=== PATIENT | male | born 1940 | race Caucasian/White ===

== ENCOUNTER 2020-11-22 16:20 | Inpatient (IN) | payer MEDICARE, SELFPAY ==
[2020-11-22] VITALS (22 sets, daily range): BP systolic 148–194; BP diastolic 95–126; PULSE 70–105; RESP 16–34; TEMP 37.2; O2SAT 88–100; BMI 26.6
--- NOTE | 2020-11-22 16:49 | XRR_ITS ---
PROCEDURE INFORMATION: Exam: XR Chest, 1 View Exam date and time: 11/22/2020 4:52 PM Age: 80 years old Clinical indication: Shortness of breath; Additional info: Hypoxia TECHNIQUE: Imaging protocol: XR of the chest Views: 1 view. COMPARISON: CR Chest 2 views* [id number] 11/27/2015 12:13 PM FINDINGS: Lungs: Bilateral perihilar infiltrates, right worse than left. Pleural space: No pleural effusion. No pneumothorax. Heart/Mediastinum: Moderate cardiomegaly is noted. Bones/joints: Unremarkable. XR/XR chest 1V portable [id number] IMPRESSION: 1. Moderate cardiomegaly is noted. 2. Bilateral perihilar infiltrates, right worse than left. Consider bilateral pneumonia versus pulmonary edema. 3. Findings are new when compared to 11/27/2015.
--- NOTE | 2020-11-22 16:51 | ECG_ITS ---
[facility] Test Date: 2020-11-22 Pat Name: Keshav Johnson Department: Room: Gender: Male Data Mining Analyst: : 1940 Requested By: Hailey Cordova I Order Number: [id number] Catrina MD: Andrew Quispe M.D. Measurements Intervals [place] Rate: 93 P: [place]: QRS: 255 QRSD: 88 T: -76 QT: 351 QTc: 438 Interpretive Statements ATRIAL FIBRILLATION RIGHT AXIS DEVIATION [QRS AXIS > 100] LOW QRS VOLTAGE IN EXTREMITY LEADS [QRS DEFLECTION < 0.5 mV IN LIMB LEADS] SEPTAL MYOCARDIAL INFARCTION , OF INDETERMINATE AGE [40+ ms Q WAVE IN V1/V2] Compared to ECG 11/27/2015 12:58:01 Right-axis deviation now present Low QRS voltage now present Myocardial infarct finding now present Sinus tachycardia no longer present Electronically Signed On 11-22-2020 17:40:41 SALES PLANNING MANAGER by Andrew Quispe M.D. [email or web address].Estimote/store/NU/[id number] f
[2020-11-22 17:13] LABS: Basophils % 0.2 %; Hematocrit 54.5 % (42.0-52.0); Hemoglobin 17.3 g/dL (11.7-16.6); Lymphocytes # 1.3 10^3/uL (0.8-4.8); Lymphocytes % 5.3 %; Mean Corpuscular HGB Conc 31.7 g/dL (30.0-36.0); Mean Corpuscular Hemoglobin 31.1 pg (28.0-34.0); Mean Corpuscular Volume 97.8 fL (80-94); Mean Platelet Volume 10.7 fL (7.4-10.4); Monocytes # 1.8 10^3/uL (0.2-0.9); Monocytes % 7.3 %; Neutrophils # 21.32 10^3/uL (1.8-7.7); Neutrophils % 86.2 %; Nucleated Red Blood Cells # 0.1 /100WBC; Nucleated Red Blood Cells % 0.3 %; Platelet Count 208 10^3/cmm (130-400); Red Blood Count 5.57 10^6/uL (4.1-5.3); White Blood Count 24.7 10^3/uL (4.0-10.0)
[2020-11-22 17:21] LABS: Lactic Sepsis W/Reflex 3.8 mmol/L (0.5-2.2)
[2020-11-22 17:22] LABS: Troponin(5th) Baseline 58 ng/L (0-15)
--- NOTE | 2020-11-22 17:22 | PC.PHAR ---
pt unable to verify medications-medications entered are medications that were filled that shows on ext med history
[2020-11-22 17:31] LABS: Alanine Aminotransferase 147 U/L (0-41); Alkaline Phosphatase 157 IU/L (40-130); Anion Gap 22.2 (5-19); Aspartate Amino Transferase 158 U/L (0-40); Blood Urea Nitrogen 49 mg/dL (8-23); Calcium 10.2 mg/dL (8.5-10.5); Carbon Dioxide 21 mmol/L (22-29); Chloride 101 mmol/L (98-107); Globulin 2.9 g/dL (1.3-4.6); Glucose 131 mg/dL (65-115); Osmolality Calculated 303 mOsm/kg (285-295); Potassium 5.2 mmol/L (3.5-5.1); Sodium 139 mmol/L (136-145); Total Bilirubin 3.2 mg/dL (0.15-1.2); Total Protein 6.9 g/dL (6.6-8.7)
--- NOTE | 2020-11-22 18:26 | CTR_ITS ---
PROCEDURE INFORMATION: Exam: CT Angiography Chest With Contrast Exam date and time: 11/22/2020 6:38 PM Age: 80 years old Clinical indication: Abnormal findings; Abnormal lab test; Elevated liver enzymes; Abnormal diagnostic tests; Elevated d-dimer; Patient HX: Nh PT w dementia - SOB elev d-dimer, bili and liver enzymes; Additional info: SOB, hypoxia, elevated liver enzymes, bilirubin TECHNIQUE: Imaging protocol: Computed tomographic angiography of the chest with intravenous contrast. 3D rendering (Not supervised by radiologist): MIP and/or 3D reconstructed images were created by the technologist. Radiation optimization: All CT scans at this facility use at least one of these dose optimization techniques: automated exposure control; mA and/or kV adjustment per patient size (includes targeted exams where dose is matched to clinical indication); or iterative reconstruction. Contrast material: OMNI 350; Contrast volume: 95 ml; Contrast route: INTRAVENOUS (IV); COMPARISON: CR (CHEST, ) 11/22/2020 4:55 PM RADIATION DOSE METRICS: Total DLP (mGy-cm): 1560.12 FINDINGS: Pulmonary arteries: Central pulmonary arteries are opacified, although mild admixture artifact is present. The peripheral pulmonary arteries in the bilateral lower lobes demonstrated propped lack of opacification, consistent with bilateral pulmonary emboli. There are additional emboli seen in the peripheral arteries of the right upper lobe. Aorta: The thoracic aorta is unopacified. Dilatation of the ascending aorta noted. The ascending aorta measures 4.5 cm in diameter. Atherosclerotic calcifications are noted. Aortic dissection is not adequately evaluated due to lack of opacification of the aortic lumen. Impression. Atherosclerosis of the thoracic aorta with dilatation of the ascending portion. The ascending aorta measures 4.5 cm in diameter. Lungs: Nonspecific airspace infiltrates in the perihilar portions of both lungs, right worse than left. Consider pulmonary edema versus bilateral pneumonia. Pleural space: Moderate-sized bilateral pleural effusions. Heart: Severe cardiomegaly is noted. No pericardial effusion. Lymph nodes: Unremarkable. No enlarged lymph nodes. Bones/joints: Degenerative spine changes. No acute fracture. Soft tissues: The soft tissues appear unremarkable. IMPRESSION: 1. Severe cardiomegaly is noted. 2. Bilateral peripheral lower lobe and right upper lobe pulmonary emboli. 3. Impression. Atherosclerosis of the thoracic aorta with dilatation of the ascending portion. The ascending aorta measures 4.5 cm in diameter. Recommend clinical assessment and follow-up. 4. Moderate-sized bilateral pleural effusions. 5. Nonspecific airspace infiltrates in the perihilar portions of both lungs, right worse than left. Consider pulmonary edema versus bilateral pneumonia. PROCEDURE INFORMATION: Exam: CT Abdomen And Pelvis With Contrast Exam date and time: 11/22/2020 6:38 PM Age: 80 years old Clinical indication: Abnormal findings; Abnormal lab test; Elevated liver enzymes; Abnormal diagnostic tests; Elevated d-dimer; Patient HX: Nh PT w dementia - SOB elev d-dimer, bili and liver enzymes; Additional info: SOB, hypoxia, elevated liver enzymes, bilirubin TECHNIQUE: Imaging protocol: Computed tomography of the abdomen and pelvis with intravenous contrast. Radiation optimization: All CT scans at this facility use at least one of these dose optimization techniques: automated exposure control; mA and/or kV adjustment per patient size (includes targeted exams where dose is matched to clinical indication); or iterative reconstruction. Contrast material: OMNI 350; Contrast volume: 95 ml; Contrast route: INTRAVENOUS (IV); COMPARISON: CR (CHEST, ) 11/22/2020 4:55 PM RADIATION DOSE METRICS: Total DLP (mGy-cm): 1560.12 FINDINGS: Lungs: Please see CT chest report from same date. Liver: The liver is unremarkable in appearance. Gallbladder and bile ducts: Small calcified gallstones in the gallbladder. Gallbladder is mildly dilated measuring 9.5 cm longitudinal by 3.5 cm transverse. No gallbladder wall thickening or pericholecystic fluid. No biliary dilatation. Pancreas: The pancreas is normal in appearance. No pancreatic duct dilatation. 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 The spleen is otherwise unremarkable. Adrenal glands: The adrenal glands appear within normal limits. Kidneys and ureters: The kidneys are normal in morphology. No hydronephrosis. No solid mass. Stomach and bowel: No acute gastric abnormality demonstrated. The small bowel is unremarkable as demonstrated. Diverticulosis of the colon; no acute diverticulitis. Appendix: No evidence of appendicitis. Intraperitoneal space: No pneumoperitoneum. No significant fluid collection. Vasculature: Aneurysmal dilatation of the ascending aorta the aorta measures up to 3.0 cm in diameter. Lymph nodes: No pathologically enlarged lymph nodes. Urinary bladder: Unremarkable as visualized. Reproductive: Mild enlargement of the prostate. Bones/joints: Right hip prosthesis. Advanced degenerative change of the left hip. Lumbar spine degenerative changes. No acute osseous abnormality. Soft tissues: Unremarkable. CT/CT angio chest w abd pel w con IMPRESSION: 1. Mildly dilated gallbladder with small gallstones. No gallbladder wall thickening or biliary dilatation. 2. 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 3. Aneurysmal dilatation of the ascending aorta the aorta measures up to 3.0 cm in diameter. 4. Diverticulosis of the colon; no acute diverticulitis. Radiation Dose CTDIVOL = (mGy): DLP = 1560.12~1560.12 (mGy-cm)
[2020-11-22 18:28] LABS: SARS Covid-2 Antigen Negative (Negative)
[2020-11-22 18:29] LABS: Influenza A by IFA Negative (Negative); Influenza B by IFA Negative (Negative)
[2020-11-22 18:43] LABS: Reflex Lactate Order REFLEX LACTIC ORDERD
--- NOTE | 2020-11-22 18:50 | PC.NURSE ---
Report from KEIKO Elizalde
--- NOTE | 2020-11-22 18:51 | ECG_ITS ---
[facility] Test Date: 2020-11-22 Pat Name: Keshav Johnson Department: Room: Gender: Male Line Maintainer Section: : 1940 Requested By: Hailey Cordova I Order Number: [id number] Catrina MD: Andrew Quispe M.D. Measurements Intervals [place] Rate: 85 P: WI: QRS: 1 QRSD: 86 T: 0 QT: 382 QTc: 455 Interpretive Statements ATRIAL FIBRILLATION LOW QRS VOLTAGE IN EXTREMITY LEADS [QRS DEFLECTION < 0.5 mV IN LIMB LEADS] ABNORMAL RHYTHM ECG Compared to ECG 11/22/2020 22:37:41 Low QRS voltage now present Sinus rhythm no longer present First degree AV block no longer present Left posterior fascicular block no longer present Left ventricular hypertrophy no longer present ST (T wave) deviation no longer present Myocardial infarct finding no longer present Electronically Signed On 11-23-2020 19:11:24 FIRMWARE ENGINEER by Andrew Quispe M.D. [email or web address] [facility].Nodejitsu/store/OM/[id number]
[2020-11-22] MEDS: iohexol 350 mg/mL 100 mL Btl IV (19:36)
[2020-11-22] MEDS: FUROsemide 10 mg/mL SDV 10mL 60 MG IVP (20:00)
[2020-11-22] MEDS: piperacillin-tazobactam 3.375 GM in sodium chloride 0.9% (plus) 50 ML IV (20:02)
--- NOTE | 2020-11-22 20:38 | P.HP_ITS ---
Providers/Chief Complaint Primary Care Provider: Philip Gordillo MD Chief Complaint: CHF History of Present Illness Keshav Johnson is a 80 year old male who presented to the hospital with chief complaint of confusion. Patient is not a good historian, I was not able to get in contact with the preferred phone number that was in the chart, I was told by the ER that home health service nurse checked on him today, she noticed hypoxia, at baseline patient uses 3 L of oxygen, not sure whether he was on oxygen at that time, EMS was called, he was saturating well above 90% on 3 to nasal cannula as per EMS. He was brought to the ER for further evaluation. diagnostics in the ER revealed bilateral PE, sepsis, possible right middle lobe pneumonia, CHF exacerbation, he was loaded with therapeutic dose of Lovenox, & vancomycin. EKG showing atrial fibrillation heart rate ranging between 100 104. Systolic blood pressure 160 mmHg, no hypotension noticed, no right heart strain, however BNP extremely high 29,000, lactic acidemia 3.8, potassium 5.[address] abdomen also revealed splenic infarct along bilateral PE, gallstones without acute cholecystitis, BPH Patient is stating that he was not feeling well past for his in the hospital, he is not able to give me proper answer whether he was using oxygen at home or not, he stating that there is a friend at home who he lives with. At the time my evaluation he is not complaining of chest pain shortness of breath, he will get out of bed and go home however he told me his name, year, date of name of the hospital but did not know name of the president. He was given antipsychotic in the ER as well. Review of Systems Const: Reports: chills, body aches and fatigue Eyes: Denies: change in vision ENMT: Denies: throat pain Card: Reports: dyspnea on exertion and orthopnea; Denies: chest pain Resp: Reports: dyspnea GI: Denies: abdominal pain : Reports: difficulty starting urination and nocturia Musc: Denies: neck pain Skin/Breast: Reports: lesions Neuro: Denies: headache(s) Psych: Reports: anxiety Endo: Denies: polyuria Gonzales/Lymph: Denies: easy bruising All/Imm: Denies: urticaria Medications/Allergies Home Medications Medication Instructions Recorded Confirmed Last Taken Type losartan 100 1 tab PO DAILY 06/16/20 11/22/20 Unknown History mg-hydrochlorothiazide 25 mg tablet metformin 500 mg tablet 500 mg PO BID 06/16/20 11/22/20 Unknown History alfuzosin 10 mg tablet,extended 10 mg PO DAILY #90 tab 10/29/20 11/22/20 Unknown Rx release 24 hr finasteride 5 mg tablet 5 mg PO DAILY #90 tab 10/29/20 11/22/20 Unknown Rx bimatoprost [Lumigan] See Rx Instructions .ROUTE .COMPLEX 11/22/20 11/22/20 Unknown History levothyroxine 25 mcg PO DAILY 11/22/20 11/22/20 Unknown History timolol maleate See Rx Instructions .ROUTE .COMPLEX 11/22/20 11/22/20 Unknown History Allergies Allergy/AdvReac Type Severity Reaction Status Date / Time pravastatin Allergy Unknown Unknown Verified 05/01/20 10:25 PFSH Acute PFSH: Medical History (Updated 11/22/20 @ 22:39 by Nithya Leon MD) Arthritis BPH loc w urin obs/LUTS Glaucoma HTN (hypertension) Hypercholesteremia Surgical History History of right hip replacement Family History Father Stroke Social History Smoking and tobacco status: never smoked Alcohol intake: never Adopted: No Caregiver/support person: No Lives independently: No Marital status: / Current occupational status: retired Vitals/I&O/Wt Last Vital Signs Temp 99.0 F 11/22/20 16:21 Pulse 93 11/22/20 20:03 Resp 18 11/22/20 20:03 BP 159/101 11/22/20 20:03 Pulse Ox 98 11/22/20 20:03 Weight last 48 hrs Weight 72.575 kg Physical Exam Narrative: EXAM NARRATIVE: elderly male He was hypoxic on room air 88-89, did well on 3 L nasal cannula No acute respiratory distress or chest pain He has a very short attention span, he is able to tell me his name, date of , year, name of the hospital but he is not sure why he was sent to the hospital, states president is Adilia S1, S2 variable heart rate no murmur appreciated Congestive heart failure bilateral lower extremity 1+ edema, pedal pitting edema Bilateral breath sounds with rhonchi and crackles Abdomen soft nontender bowel sounds present Nelson catheter draining concentrated orange-tinged urine No focal deficit Awake, alert oriented to place and person not time GCS 15 No active sign of cellulitis gangrene or ulcer of skin of lower extremity Patient seems agitated and wanted to get out of bed One-to-one sitter Urinary Catheter Management^: Nelson: Cath Placed During This Visit: yes Urinary Catheter Date of Insertion: 11/22/20 Urinary Catheter Time of Insertion: 20:03 Data : 11/22/20 16:39 11/22/20 16:39 A&P Assessment and plan (1) Bilateral pulmonary embolism: Status: Acute (2) Congestive heart failure: Status: Acute (3) Liver failure: Status: Acute (4) Sepsis: Status: Acute (5) Community acquired pneumonia: Status: Acute (6) BPH loc w urin obs/LUTS: Status: Acute (7) Polycythemia: Status: Acute (8) Splenic infarct: Status: Acute Additional A&P Information Bilateral pulmonary embolism and splenic infarct Therapeutic dose of Lovenox initiated I am not sure how mobile this patient is at home, he gets home health service Noticed polycythemia with extensive clot burden Previous hemoglobin above 16 Splenic infarct noted as well New onset A. fib At this point I am not sure what is the etiology of bilateral PE and splenic infarct however my suspicion will be high for hypercoagulable state due to poly cythemia, will start him on low-dose aspirin, kindly consult hematology if he would benefit from hydroxyurea Congestive heart failure I am not able to see any previous echo, patient is not able to tell me about previous history of CHF I will obtain echo in the morning, would use only low-dose Lasix to avoid reducing preload because of bilateral PE however no saddle embolism, currently he is not hypotensive Use Lasix 20 mg daily for now Negative delta troponin patient not complaining of active chest pain EKG showing atrial fibrillation without ischemic or infarctive changes Acute liver failure This seems secondary to CHF Will obtain hepatitis panel CT abdomen revealed distended gallbladder without pericholecystic fluid or acute signs of cholecystitis Sepsis Criteria met with tachypnea, leukocytosis Chest x-ray reveals right middle lobe irregular opacity, suspicion high for pneumonia, no signs of ascending cholangitis, will obtain gallbladder ultrasound in the morning CT chest is also showing hilar lymphadenopathy, underlying lung cancer not ruled out I would keep him on vancomycin and Zosyn considering extensive leukocytosis, lactic acidemia and high D-dimer Obtain blood culture, MRSA nares, sputum culture and urine antigen DuoNeb every 4 as needed New onset A. fib Most likely secondary to sepsis Patient already started on therapeutic dose of Lovenox Heart rate ranging between 10 1-1 04, monitor closely, I would not initiate AV josh blocking agent for now because of acute CHF Full code Cardiac diet DVT prophylaxis not needed currently on therapeutic dose of Lovenox Attestations Medical Necessity Statement*: Anticipating stay in the hospital to cross more than 2 midnights for sepsis, liver failure, CHF, bilateral PE Time Spent in Patient Care: (>than 50% of time spent in counselling and/or direct pt care on unit) . 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
[2020-11-22] MEDS: vancomycin 1,000 MG in sodium chloride 0.9% 250 ML 250 MG IV (20:59)
--- NOTE | 2020-11-22 22:05 | PC.NURSE ---
Notified provider BP and pt continues to pull on lines and guzman. Sitter at bedside.
[2020-11-22] MEDS: OLANZapine 10 mg VIAL 5 MG IM (22:28)
[2020-11-22] MEDS: enoxaparin 80 mg/0.8 mL Syringe 70 MG SUBCUT (22:29)
[2020-11-22] MEDS: labetalol 5 mg/mL SDV 20mL 10 MG IVP (22:30)
--- NOTE | 2020-11-22 22:36 | PC.NURSE ---
sitter at bedside
--- NOTE | 2020-11-22 22:36 | PC.NURSE ---
sitter at bedside. Notified provider of BP and continues to pull on lines.
--- NOTE | 2020-11-22 22:51 | ECG_ITS ---
[facility] Test Date: 2020-11-22 Pat Name: Keshav Johnson Department: Room: Gender: Male Ocean Import Representative: : 1940 Requested By: Hailey Cordova I Order Number: [id number] Catrina MD: Andrew Quispe M.D. Measurements Intervals [place] Rate: 82 P: 71 [place]: 235 QRS: 114 QRSD: 90 T: 28 QT: 408 QTc: 479 Interpretive Statements SINUS RHYTHM WITH FIRST DEGREE AV BLOCK LEFT POSTERIOR FASCICULAR BLOCK [QRS AXIS > 109, INFERIOR Q] LEFT VENTRICULAR HYPERTROPHY AND ST-T CHANGE [VOLTAGE CRITERIA PLUS ST/T ABNORMALITY] Compared to ECG 11/22/2020 16:26:23 First degree AV block now present Left posterior fascicular block now present Left ventricular hypertrophy now present ST (T wave) deviation now present Atrial fibrillation no longer present Right-axis deviation no longer present Electronically Signed On 11-23-2020 19:11:51 MOLD LAMINATOR by Andrew Quispe M.D. [id number]
[2020-11-23] VITALS (173 sets, daily range): BP systolic 116–205; BP diastolic 67–140; PULSE 53–144; RESP 12–37; TEMP 36.4–36.6; O2SAT 82–100
--- NOTE | 2020-11-23 00:19 | PC.NURSE ---
sitter at bedside
[2020-11-23 00:35] LABS: Troponin 5 6HR 52.03 ng/L (0-15)
[2020-11-23 00:37] LABS: Troponin 5 6HR Delta -5.97 ng/L (0-12)
[2020-11-23 00:38] LABS: Add Urine Microscopic? YES; Bilirubin Urine 1+ (Negative); Blood Urine 3+ (Negative); Glucose Urine UA Norm (Normal); Ketones Urine 1+ (Negative); Leukocyte Esterase Urine Negative (Negative); Nitrate Urine Negative (Negative); Protein Urine 1+ (Negative); Urine Appearance Clear (CLEAR); Urine Color Yellow (Yellow); Urobilinogen Urine 1 mg/dL (Negative); pH Urine 5 (5-7)
[2020-11-23 00:44] LABS: Add Urine Culture? Yes; Amorphous Sediment Urine 2+ /hpf; Bacteria Urine 2+ /hpf; Hyaline Casts Urine 0-4 /lpf; RBC Urine 15-25 /hpf (0-2); Squamous Epithelial Cell Urine 0-4 /hpf (0-5); WBC Urine 0-4 /hpf (0-5)
[2020-11-23] MEDS: LORazepam 2 mg/mL INJ 1 mL 1 MG IVP (00:44)
--- NOTE | 2020-11-23 01:10 | ED_ITS ---
HPI - SOB/Dyspnea General: Chief Complaint: Shortness of Breath/Dyspnea Stated Complaint: CHF Time Seen by Provider: 11/22/20 16:39 Source: patient and EMS Mode of arrival: EMS Limitations: altered mental status History of Present Illness: HPI Narrative: This patient is a poor historian and is unable to give me much of the history. Most of the history is obtained from EMS. EMS was apparently called to the patient's residence by his home health nurse who states that the patient was hypoxic with oxygen saturation in the 70s on his regular 3 L of oxygen via nasal cannula. When EMS arrived the patient was saturating above 100% on 3 L of oxygen. He was then brought in here for evaluation without intervention. The patient did tell me that he was short of breath, he said he was very short of breath. He is unable to tell me how long he has been feeling this way or any other symptoms. He kept asking for gloves for his hand hygiene. MD elicited complaint: shortness of breath Review of Systems General: Reports: ROS unobtainable due to mental status PFSH ED PFSH: Medical History Arthritis BPH loc w urin obs/LUTS Glaucoma HTN (hypertension) Hypercholesteremia Surgical History History of right hip replacement Family History Father Stroke Social History Smoking and tobacco status: never smoked Alcohol intake: never Adopted: No Caregiver/support person: No Lives independently: No Marital status: / Current occupational status: retired Physical Exam Const: COMMON NORMALS: no acute distress, average body habitus, patient oriented x3, no limitations, healthy appearing, alert and well nourished HENMT: COMMON NORMALS: normocephalic, atraumatic and moist oral mucous membranes HEAD & SCALP: normocephalic and atraumatic Neck/C-Spine: COMMON NORMALS: no meningeal signs and no JVD Resp: COMMON NORMALS: normal respiratory effort, No retractions, No use of accessory muscles and percussion normal AUSCULTATION: rales and diminished lung sounds PERCUSSION: percussion normal Cardio: COMMON NORMALS: no JVD, regular rhythm, S1 normal heart sound present, S2 normal heart sound present, No gallops present (Cardio), No clicks present (Cardio), No murmurs present (Cardio), No rub (Cardio) and Peripheral pulses 2+ throughout RATE: tachycardic RHYTHM: regular rhythm HEART SOUNDS: S1 normal heart sound present and S2 normal heart sound present PERIPHERAL PULSES: Peripheral pulses 2+ throughout GI: COMMON NORMALS: Normal to inspection, nondistended, normoactive bowel sounds present, Soft to palpation, non-tender, No hepatosplenomegaly present, no masses and no bruits PALPATION: Yes Soft to palpation and Yes No hepatosplenomegaly present : COMMON NORMALS: Yes no CVA tenderness BLADDER/KIDNEY EXAM: Yes no CVA tenderness Back/Pelvis: COMMON NORMALS: no CVA tenderness Extremity: COMMON NORMALS: normal to inspection, full ROM, capillary refill normal, no calf tenderness and no pedal edema Neuro: COMMON NORMALS: patient oriented x3 SENSORIUM/ORIENTATION: Yes alert MENINGEAL SIGNS: Yes no meningeal signs Skin: COMMON NORMALS: no rashes or lesions noted, no wounds, turgor normal, no jaundice, no petechiae and no mottling GENERAL SKIN EXAM: no rashes or lesions noted and turgor normal Course Reevaluation(s): Reevaluation #1: Discussed the patient with Dr. Leon and he kindly accepted the patient to his service. Time: 20:30 Vital Signs: Vital signs: Vital Signs Temperature 99.0 F 11/22/20 16:21 Pulse Rate 78 11/23/20 00:45 Respiratory Rate 15 11/23/20 00:45 Blood Pressure 135/96 11/23/20 00:45 Pulse Oximetry 96 11/23/20 00:45 MDM - SOB/Dyspnea MDM Narrative: Medical decision making narrative: 80-year-old male who was brought into the emergency department because of hypoxia. Evaluation in the emergency department revealed that the patient is septic, has bilateral pulmonary emboli, bilateral pleural effusions, bilateral infiltrates, and CHF. He is given a dose of intravenous furosemide in the emergency department, IV vancomycin and Zosyn, and therapeutic dose of enoxaparin. He is admitted to the ICU for further evaluation and management. Medical Records: Attestation: I reviewed the patient's medical records. Lab Data: Attestation: I reviewed the patient's lab results. Labs: Lab Results 11/22/20 11/22/20 11/22/20 Range/Units 16:39 16:39 16:39 WBC 24.7 H (4.0-10.0) 10^3/ uL RBC 5.57 H (4.1-5.3) 10^6/u L Hgb 17.3 H (11.7-16.6) g/dL Hct 54.5 H (42.0-52.0) % MCV 97.8 H (80-94) fL MCH 31.1 (28.0-34.0) pg MCHC 31.7 (30.0-36.0) g/dL RDW 16.0 H (12.1-15.1) % Plt Count 208 (130-400) 10^3/c mm MPV 10.7 H (7.4-10.4) fL Neut % (Auto) 86.2 % Lymph % (Auto) 5.3 % [place] % (Auto) 7.3 % Eos % (Auto) 0.0 % Baso % (Auto) 0.2 % Neut # (Auto) 21.32 H (1.8-7.7) 10^3/u L Lymph # (Auto) 1.3 (0.8-4.8) 10^3/u L [place] # (Auto) 1.8 H (0.2-0.9) 10^3/u L Eos # (Auto) 0.0 (0.0-0.8) 10^3/u L Baso # (Auto) 0.0 (0.0-0.1) 10^3/u L Nucleated RBC % (a uto) 0.3 % Nucleated RBCs # 0.1 /100WBC D-Dimer 7.40 H (0-0.59) ug/mIFE U Sodium 139 (136-145) mmol/L Potassium 5.2 H (3.5-5.1) mmol/L Chloride 101 (98-107) mmol/L Carbon Dioxide 21 L (22-29) mmol/L Anion Gap 22.2 H (5-19) BUN 49 H (8-23) mg/dL Creatinine 1.1 (0.7-1.2) mg/dL GFR Calculation Not Reportable Glucose 131 H (65-115) mg/dL Calculated Osmolal ity 303 H (285-295) mOsm/k g Lactic Acid (0.5-2.2) mmol/L Calcium 10.2 (8.5-10.5) mg/dL Total Bilirubin 3.2 H (0.15-1.2) mg/dL AST 158 H (0-40) U/L ALT 147 H (0-41) U/L Alkaline Phosphata se 157 H (40-130) IU/L Troponin T Baselin e (0-15) ng/L Troponin T 120 Min ewiiaapaayp (0-15) ng/L Delta Troponin T (0-10) ABS# Troponin T Hi Sens 6Hr (0-15) ng/L Troponin T Hi Sens 6Hr Delta (0-12) ng/L NT-Pro-B Natriuret Pep 64387 H (0-450) pg/mL Total Protein 6.9 (6.6-8.7) g/dL Albumin 4.0 (3.5-5.2) g/dL Globulin 2.9 (1.3-4.6) g/dL Urine Color (Yellow) Urine Appearance (CLEAR) Urine pH (5-7) Ur Specific Gravit y (1.005-1.030) Urine Protein (Negative) Urine Glucose (UA) (Normal) Urine Ketones (Negative) Urine Blood (Negative) Urine Nitrate (Negative) Urine Bilirubin (Negative) Urine Urobilinogen (Negative) mg/dL Ur Leukocyte Minnie ase (Negative) Urine RBC (0-2) /hpf Urine WBC (0-5) /hpf Ur Squamous Epith Cells (0-5) /hpf Amorphous Sediment /hpf Urine Bacteria (NONE) /hpf Hyaline Casts /lpf Influenza Type A A g (Negative) Influenza Type B A g (Negative) SARS-CoV-2 Ag (Rap id) (Negative) 11/22/20 11/22/20 11/22/20 Range/Units 16:39 16:39 17:20 WBC (4.0-10.0) 10^3/ uL RBC (4.1-5.3) 10^6/u L Hgb (11.7-16.6) g/dL Hct (42.0-52.0) % MCV (80-94) fL MCH (28.0-34.0) pg MCHC (30.0-36.0) g/dL RDW (12.1-15.1) % Plt Count (130-400) 10^3/c mm MPV (7.4-10.4) fL Neut % (Auto) % Lymph % (Auto) % [place] % (Auto) % Eos % (Auto) % Baso % (Auto) % Neut # (Auto) (1.8-7.7) 10^3/u L Lymph # (Auto) (0.8-4.8) 10^3/u L [place] # (Auto) (0.2-0.9) 10^3/u L Eos # (Auto) (0.0-0.8) 10^3/u L Baso # (Auto) (0.0-0.1) 10^3/u L Nucleated RBC % (a uto) % Nucleated RBCs # /100WBC D-Dimer (0-0.59) ug/mIFE U Sodium (136-145) mmol/L Potassium (3.5-5.1) mmol/L Chloride (98-107) mmol/L Carbon Dioxide (22-29) mmol/L Anion Gap (5-19) BUN (8-23) mg/dL Creatinine (0.7-1.2) mg/dL GFR Calculation Glucose (65-115) mg/dL Calculated Osmolal ity (285-295) mOsm/k g Lactic Acid 3.8 H (0.5-2.2) mmol/L Calcium (8.5-10.5) mg/dL Total Bilirubin (0.15-1.2) mg/dL AST (0-40) U/L ALT (0-41) U/L Alkaline Phosphata se (40-130) IU/L Troponin T Baselin e 58 H (0-15) ng/L Troponin T 120 Min ewiia[place]ayp (0-15) ng/L Delta Troponin T (0-10) ABS# Troponin T Hi Sens 6Hr (0-15) ng/L Troponin T Hi Sens 6Hr Delta (0-12) ng/L NT-Pro-B Natriuret Pep (0-450) pg/mL Total Protein (6.6-8.7) g/dL Albumin (3.5-5.2) g/dL Globulin (1.3-4.6) g/dL Urine Color (Yellow) Urine Appearance (CLEAR) Urine pH (5-7) Ur Specific Gravit y (1.005-1.030) Urine Protein (Negative) Urine Glucose (UA) (Normal) Urine Ketones (Negative) Urine Blood (Negative) Urine Nitrate (Negative) Urine Bilirubin (Negative) Urine Urobilinogen (Negative) mg/dL Ur Leukocyte Minnie ase (Negative) Urine RBC (0-2) /hpf Urine WBC (0-5) /hpf Ur Squamous Epith Cells (0-5) /hpf Amorphous Sediment /hpf Urine Bacteria (NONE) /hpf Hyaline Casts /lpf Influenza Type A A g Negative (Negative) Influenza Type B A g Negative (Negative) SARS-CoV-2 Ag (Rap id) (Negative) 11/22/20 11/22/20 11/22/20 Range/Units 17:20 18:41 20:05 WBC (4.0-10.0) 10^3/ uL RBC (4.1-5.3) 10^6/u L Hgb (11.7-16.6) g/dL Hct (42.0-52.0) % MCV (80-94) fL MCH (28.0-34.0) pg MCHC (30.0-36.0) g/dL RDW (12.1-15.1) % Plt Count (130-400) 10^3/c mm MPV (7.4-10.4) fL Neut % (Auto) % Lymph % (Auto) % [place] % (Auto) % Eos % (Auto) % Baso % (Auto) % Neut # (Auto) (1.8-7.7) 10^3/u L Lymph # (Auto) (0.8-4.8) 10^3/u L [place] # (Auto) (0.2-0.9) 10^3/u L Eos # (Auto) (0.0-0.8) 10^3/u L Baso # (Auto) (0.0-0.1) 10^3/u L Nucleated RBC % (a uto) % Nucleated RBCs # /100WBC D-Dimer (0-0.59) ug/mIFE U Sodium (136-145) mmol/L Potassium (3.5-5.1) mmol/L Chloride (98-107) mmol/L Carbon Dioxide (22-29) mmol/L Anion Gap (5-19) BUN (8-23) mg/dL Creatinine (0.7-1.2) mg/dL GFR Calculation Glucose (65-115) mg/dL Calculated Osmolal ity (285-295) mOsm/k g Lactic Acid (0.5-2.2) mmol/L Calcium (8.5-10.5) mg/dL Total Bilirubin (0.15-1.2) mg/dL AST (0-40) U/L ALT (0-41) U/L Alkaline Phosphata se (40-130) IU/L Troponin T Baselin e (0-15) ng/L Troponin T 120 Min ewiiaapaayp 46.10 H (0-15) ng/L Delta Troponin T -11.90 L (0-10) ABS# Troponin T Hi Sens 6Hr (0-15) ng/L Troponin T Hi Sens 6Hr Delta (0-12) ng/L NT-Pro-B Natriuret Pep (0-450) pg/mL Total Protein (6.6-8.7) g/dL Albumin (3.5-5.2) g/dL Globulin (1.3-4.6) g/dL Urine Color Yellow (Yellow) Urine Appearance Clear (CLEAR) Urine pH 5 (5-7) Ur Specific Gravit y 1.020 (1.005-1.030) Urine Protein 1+ H (Negative) Urine Glucose (UA) Norm (Normal) Urine Ketones 1+ H (Negative) Urine Blood 3+ H (Negative) Urine Nitrate Negative (Negative) Urine Bilirubin 1+ H (Negative) Urine Urobilinogen 1 H (Negative) mg/dL Ur Leukocyte Minnie ase Negative (Negative) Urine RBC 15-25 H (0-2) /hpf Urine WBC 0-4 H (0-5) /hpf Ur Squamous Epith Cells 0-4 H (0-5) /hpf Amorphous Sediment 2+ /hpf Urine Bacteria 2+ H (NONE) /hpf Hyaline Casts 0-4 H /lpf Influenza Type A A g (Negative) Influenza Type B A g (Negative) SARS-CoV-2 Ag (Rap id) Negative (Negative) 11/22/20 Range/Units 23:45 WBC (4.0-10.0) 10^3/ uL RBC (4.1-5.3) 10^6/u L Hgb (11.7-16.6) g/dL Hct (42.0-52.0) % MCV (80-94) fL MCH (28.0-34.0) pg MCHC (30.0-36.0) g/dL RDW (12.1-15.1) % Plt Count (130-400) 10^3/c mm MPV (7.4-10.4) fL Neut % (Auto) % Lymph % (Auto) % [place] % (Auto) % Eos % (Auto) % Baso % (Auto) % Neut # (Auto) (1.8-7.7) 10^3/u L Lymph # (Auto) (0.8-4.8) 10^3/u L [place] # (Auto) (0.2-0.9) 10^3/u L Eos # (Auto) (0.0-0.8) 10^3/u L Baso # (Auto) (0.0-0.1) 10^3/u L Nucleated RBC % (a uto) % Nucleated RBCs # /100WBC D-Dimer (0-0.59) ug/mIFE U Sodium (136-145) mmol/L Potassium (3.5-5.1) mmol/L Chloride (98-107) mmol/L Carbon Dioxide (22-29) mmol/L Anion Gap (5-19) BUN (8-23) mg/dL Creatinine (0.7-1.2) mg/dL GFR Calculation Glucose (65-115) mg/dL Calculated Osmolal ity (285-295) mOsm/k g Lactic Acid (0.5-2.2) mmol/L Calcium (8.5-10.5) mg/dL Total Bilirubin (0.15-1.2) mg/dL AST (0-40) U/L ALT (0-41) U/L Alkaline Phosphata se (40-130) IU/L Troponin T Baselin e (0-15) ng/L Troponin T 120 Min ewiiaapaayp (0-15) ng/L Delta Troponin T (0-10) ABS# Troponin T Hi Sens 6Hr 52.03 H (0-15) ng/L Troponin T Hi Sens 6Hr Delta -5.97 L (0-12) ng/L NT-Pro-B Natriuret Pep (0-450) pg/mL Total Protein (6.6-8.7) g/dL Albumin (3.5-5.2) g/dL Globulin (1.3-4.6) g/dL Urine Color (Yellow) Urine Appearance (CLEAR) Urine pH (5-7) Ur Specific Gravit y (1.005-1.030) Urine Protein (Negative) Urine Glucose (UA) (Normal) Urine Ketones (Negative) Urine Blood (Negative) Urine Nitrate (Negative) Urine Bilirubin (Negative) Urine Urobilinogen (Negative) mg/dL Ur Leukocyte Minnie ase (Negative) Urine RBC (0-2) /hpf Urine WBC (0-5) /hpf Ur Squamous Epith Cells (0-5) /hpf Amorphous Sediment /hpf Urine Bacteria (NONE) /hpf Hyaline Casts /lpf Influenza Type A A g (Negative) Influenza Type B A g (Negative) SARS-CoV-2 Ag (Rap id) (Negative) Imaging Data^: CTA Chest: Radiologist's impression: [place] [address] CT Scan Report Signed with Addenda Patient: Keshav Johnson #: [id number] : 9Acct#:[id number] Age/Sex: 80 / MADM Date: 11/22/20 Loc: ERRoom/Bed: Attending Dr: Ordering Provider/Ordering MD: Hailey Lyle MD, [facility] [place] Date of Service: 11/22/20 Procedure(s): CT angio chest w abd pel w con Accession Number(s): [id number] Report Number: [id number]/CT angio chest w abd pel w con THIS REPORT CONTAINS FINDINGS MAY BE CRITICAL TO PATIENT CARE. The findings were verbally communicated via telephone conference call with Dr. HAILEY LYLE, at 8:17 PM PET TRAINING INSTRUCTOR on 11/22/2020. The findings were acknowledged and understood. Radiation Dose CTDIVOL = (mGy): DLP = 1560.12~1560.12 (mGy-cm) Addendum Dictated By: Yovani Elliott MD Addendum Signed By: Yovani Elliott MDSigned Date/Time:11/22/202017 Addendum Cosigned By: PROCEDURE INFORMATION: Exam: CT Angiography Chest With Contrast Exam date and time: 11/22/2020 6:38 PM Age: 80 years old Clinical indication: Abnormal findings; Abnormal lab test; Elevated liver enzymes; Abnormal diagnostic tests; Elevated d-dimer; Patient HX: Nh PT w dementia - SOB elev d-dimer, bili and liver enzymes; Additional info: SOB, hypoxia, elevated liver enzymes, bilirubin TECHNIQUE: Imaging protocol: Computed tomographic angiography of the chest with intravenous contrast. 3D rendering (Not supervised by radiologist): MIP and/or 3D reconstructed images were created by the technologist. Radiation optimization: All CT scans at this facility use at least one of these dose optimization techniques: automated exposure control; mA and/or kV adjustment per patient size (includes targeted exams where dose is matched to clinical indication); or iterative reconstruction. Contrast material: OMNI 350; Contrast volume: 95 ml; Contrast route: INTRAVENOUS (IV); COMPARISON: CR (CHEST, ) 11/22/2020 4:55 PM RADIATION DOSE METRICS: Total DLP (mGy-cm): 1560.12 FINDINGS: Pulmonary arteries: Central pulmonary arteries are opacified, although mild admixture artifact is present. The peripheral pulmonary arteries in the bilateral lower lobes demonstrated propped lack of opacification, consistent with bilateral pulmonary emboli. There are additional emboli seen in the peripheral arteries of the right upper lobe. Aorta: The thoracic aorta is unopacified. Dilatation of the ascending aorta noted. The ascending aorta measures 4.5 cm in diameter. Atherosclerotic calcifications are noted. Aortic dissection is not adequately evaluated due to lack of opacification of the aortic lumen. Impression. Atherosclerosis of the thoracic aorta with dilatation of the ascending portion. The ascending aorta measures 4.5 cm in diameter. Lungs: Nonspecific airspace infiltrates in the perihilar portions of both lungs, right worse than left. Consider pulmonary edema versus bilateral pneumonia. Pleural space: Moderate-sized bilateral pleural effusions. Heart: Severe cardiomegaly is noted. No pericardial effusion. Lymph nodes: Unremarkable. No enlarged lymph nodes. Bones/joints: Degenerative spine changes. No acute fracture. Soft tissues: The soft tissues appear unremarkable. IMPRESSION: 1. Severe cardiomegaly is noted. 2. Bilateral peripheral lower lobe and right upper lobe pulmonary emboli. 3. Impression. Atherosclerosis of the thoracic aorta with dilatation of the ascending portion. The ascending aorta measures 4.5 cm in diameter. Recommend clinical assessment and follow-up. 4. Moderate-sized bilateral pleural effusions. 5. Nonspecific airspace infiltrates in the perihilar portions of both lungs, right worse than left. Consider pulmonary edema versus bilateral pneumonia. PROCEDURE INFORMATION: Exam: CT Abdomen And Pelvis With Contrast Exam date and time: 11/22/2020 6:38 PM Age: 80 years old Clinical indication: Abnormal findings; Abnormal lab test; Elevated liver enzymes; Abnormal diagnostic tests; Elevated d-dimer; Patient HX: Nh PT w dementia - SOB elev d-dimer, bili and liver enzymes; Additional info: SOB, hypoxia, elevated liver enzymes, bilirubin TECHNIQUE: Imaging protocol: Computed tomography of the abdomen and pelvis with intravenous contrast. Radiation optimization: All CT scans at this facility use at least one of these dose optimization techniques: automated exposure control; mA and/or kV adjustment per patient size (includes targeted exams where dose is matched to clinical indication); or iterative reconstruction. Contrast material: OMNI 350; Contrast volume: 95 ml; Contrast route: INTRAVENOUS (IV); COMPARISON: CR (CHEST, ) 11/22/2020 4:55 PM RADIATION DOSE METRICS: Total DLP (mGy-cm): 1560.12 FINDINGS: Lungs: Please see CT chest report from same date. Liver: The liver is unremarkable in appearance. Gallbladder and bile ducts: Small calcified gallstones in the gallbladder. Gallbladder is mildly dilated measuring 9.5 cm longitudinal by 3.5 cm transverse. No gallbladder wall thickening or pericholecystic fluid. No biliary dilatation. Pancreas: The pancreas is normal in appearance. No pancreatic duct dilatation. 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 The spleen is otherwise unremarkable. Adrenal glands: The adrenal glands appear within normal limits. Kidneys and ureters: The kidneys are normal in morphology. No hydronephrosis. No solid mass. Stomach and bowel: No acute gastric abnormality demonstrated. The small bowel is unremarkable as demonstrated. Diverticulosis of the colon; no acute diverticulitis. Appendix: No evidence of appendicitis. Intraperitoneal space: No pneumoperitoneum. No significant fluid collection. Vasculature: Aneurysmal dilatation of the ascending aorta the aorta measures up to 3.0 cm in diameter. Lymph nodes: No pathologically enlarged lymph nodes. Urinary bladder: Unremarkable as visualized. Reproductive: Mild enlargement of the prostate. Bones/joints: Right hip prosthesis. Advanced degenerative change of the left hip. Lumbar spine degenerative changes. No acute osseous abnormality. Soft tissues: Unremarkable. CT/CT angio chest w abd pel w con IMPRESSION: 1. Mildly dilated gallbladder with small gallstones. No gallbladder wall thickening or biliary dilatation. 2. 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 3. Aneurysmal dilatation of the ascending aorta the aorta measures up to 3.0 cm in diameter. 4. Diverticulosis of the colon; no acute diverticulitis. Radiation Dose CTDIVOL = (mGy): DLP = 1560.12~1560.12 (mGy-cm) Dictated By:Yovani Elliott MD Signed By:Yovani Elliott MDSigned Date/Time:11/22/202007 DD/ 06 CXR: Attestation: I personally reviewed and interpreted this imaging study as follows: Radiologist's impression: [address] [address] XRay Report Signed Patient: Keshav Johnson #: [id number] : 9Acct#:[id number] Age/Sex: 80 / MADM Date: 11/22/20 Loc: ERRoom/Bed: Attending Dr: Ordering Provider/Ordering MD: Hailey Lyle MD, [facility] [place] Date of Service: 11/22/20 Procedure(s): XR chest 1V portable [id number] Accession Number(s): [id number] Report Number: [id number] PROCEDURE INFORMATION: Exam: XR Chest, 1 View Exam date and time: 11/22/2020 4:52 PM Age: 80 years old Clinical indication: Shortness of breath; Additional info: Hypoxia TECHNIQUE: Imaging protocol: XR of the chest Views: 1 view. COMPARISON: CR Chest 2 views* [id number] 11/27/2015 12:13 PM FINDINGS: Lungs: Bilateral perihilar infiltrates, right worse than left. Pleural space: No pleural effusion. No pneumothorax. Heart/Mediastinum: Moderate cardiomegaly is noted. Bones/joints: Unremarkable. XR/XR chest 1V portable [id number] IMPRESSION: 1. Moderate cardiomegaly is noted. 2. Bilateral perihilar infiltrates, right worse than left. Consider bilateral pneumonia versus pulmonary edema. 3. Findings are new when compared to 11/27/2015. Dictated By:Yovani Elliott MD Signed By:Yovani Elliott MDSigned Date/Time:11/22/201726 DD/ 25 EKG Data^: EKG 1: Attestation: I personally reviewed and interpreted this EKG as follows: EKG Interpretation Date: 11/22/20 EKG interpretation time: 16:26 Prior EKG tracings: not available for review Interpretation: Atrial fibrillation. 93 bpm. Right axis deviation. No ST changes. EKG 2: Attestation: I personally reviewed and interpreted this EKG as follows: EKG Interpretation Date: 11/22/20 EKG interpretation time: 20:09 Prior EKG tracings: available for review Interpretation: Atrial fibrillation with PVCs. Heart rate [address] changes. EKG 3: Attestation: I personally reviewed and interpreted this EKG as follows: EKG Interpretation Date: 11/22/20 EKG interpretation time: 22:46 Prior EKG tracings: available for review Interpretation: Atrial fibrillation. Heart rate 85 beats per minutes. No ST changes. Discharge Plan Discharge Patient Disposition: Admitted As Inpatient Clinical Impression: Bilateral pulmonary embolism, Congestive heart failure, Sepsis, Community acquired pneumonia Condition: Stable Prescriptions: No Action metformin 500 mg tablet 500 mg PO BID RF: 0 losartan-hydrochlorothiazide 100-25 mg tablet 1 tab PO DAILY RF: 0 alfuzosin 10 mg tablet extended release 24 hr 10 mg PO DAILY Qty: 90 RF: 3 finasteride 5 mg tablet 5 mg PO DAILY Qty: 90 RF: 3 levothyroxine 25 mcg tablet 25 mcg PO DAILY RF: 0 timolol maleate 0.5 % drops See Rx Instructions .ROUTE .COMPLEX RF: 0 Lumigan 0.01 % drops See Rx Instructions .ROUTE .COMPLEX RF: 0 Referrals: Philip Gordillo MD [Primary Care Provider] - Coding Level of Care Code ED [place] for Halle Hood
--- NOTE | 2020-11-23 02:41 | USCV_ITS ---
Keshav Johnson Age: 80 Gender: M : 1940 Exam Date: 11/23/2020 06:42 Ordering Phys: Nithya Leon MD Technologist: Dell Sorensen [place] [facility] [place]: CHF BP: / HR: 94 Rhythm: Sinus Technical Quality: Adequate MEASUREMENTS (Male / Female) Normal Values 2D ECHO LV Diastolic Diameter PLAX 3.3 cm 4.2 - 5.9 / 3.9 - 5.3 cm LV Systolic Diameter PLAX 2.4 cm IVS Diastolic Thickness 1.8 cm 0.6 - 1.0 / 0.6 - 0.9 cm IVS Systolic Thickness 1.9 cm LVPW Diastolic Thickness 1.5 cm 0.6 - 1.0 / 0.6 - 0.9 cm LVPW Systolic Thickness 1.5 cm LVOT Diameter 2.0 cm LV Ejection Fraction 2D Teich 53.1 % LV Ejection Fraction MOD 2C 57.8 % LV Ejection Fraction 2C AL 57.2 % LA Diameter 4.7 cm LA Width 4.6 cm LA Height 4.8 cm RA Width 3.8 cm RA Height 5.0 cm Aorta at Sinotubular Diameter 3.3 cm M-MODE LV Diastolic Diameter MM 3.7 cm 4.2 - 5.9 / 3.9 - 5.3 cm LV Systolic Diameter MM 2.8 cm LV Ejection Fraction MM Teich 48.7 % IVS Diastolic Thickness MM 2.0 cm 0.6 - 1.0 / 0.6 - 0.9 cm IVS Systolic Thickness MM 1.9 cm LVPW Diastolic Thickness MM 1.6 cm 0.6 - 1.0 / 0.6 - 0.9 cm LVPW Systolic Thickness MM 2.4 cm RV Diastolic Diameter MM 1.9 cm Aortic Annulus Diameter 3.3 cm LA Ao Ratio MM 1.5 MV E Point Septal Separation 0.8 cm DOPPLER AV Peak Velocity 95.0 cm/s LVOT Peak Velocity 78.0 cm/s AV Area Cont Eq vti 2.2 cm squared AV Area Cont Eq pk 2.7 cm squared MV Area PHT 5.0 cm squared Mitral E to A Ratio 2.6 MV E' Velocity 47.0 cm/s Mitral E to LV E' Lateral Ratio 14.7 TR Peak Velocity 346.3 cm/s TR Peak Gradient 48.0 mmHg TV Peak E Velocity 87.0 cm/s Right Atrial Pressure 3.0 mmHg Pulmonary Artery Systolic Pressu 51.0 mmHg PV Peak Velocity 79.0 cm/s FINDINGS Left Ventricle Normal left ventricular cavity size. Moderately decreased left ventricular systolic function. Left ventricular ejection fraction is estimated at 40 %. There appeared to be anterior and septal akinesis there is apical akinesis. In the presence of atrial fibrillation diastolic function cannot be assessed accurately.flattened septum in diastole consistent with right ventricle volume overload. Right Ventricle Normal right ventricular systolic function. Moderate pulmonary hypertension, RVSP 51 mmHg. Right Atrium The right atrium is normal in size. Left Atrium Moderately increased left atrial size. Mitral Valve Moderately thickened mitral valve. No mitral valve stenosis. Mild-moderate mitral valve regurgitation. Aortic Valve Moderate aortic valve calcification. Mild aortic valve stenosis, mean gradient 1.6 mmHg, ROSETTA 2.2 cm squared. Trace aortic valve regurgitation. Tricuspid Valve Moderate tricuspid valve regurgitation. Pulmonic Valve Structurally normal pulmonic valve without significant stenosis. There is no pulmonic regurgitation. Pericardium Normal pericardium without effusion. Aorta Normal ascending aorta dimension. CONCLUSIONS 1-Normal left ventricular cavity size. Moderately decreased left ventricular systolic function. Left ventricular ejection fraction is estimated at 40 %. There appeared to be anterior and septal akinesis there is apical akinesis. In the presence of atrial fibrillation diastolic function cannot be assessed accurately.flattened septum in diastole consistent with right ventricle volume overload. 2-Normal right ventricular systolic function. Moderate pulmonary hypertension, RVSP 51 mmHg. 3-Moderately increased left atrial size. 4-Moderately thickened mitral valve. No mitral valve stenosis. Mild-moderate mitral valve regurgitation. 5-Moderate aortic valve calcification. Mild aortic valve stenosis, mean gradient 1.6 mmHg, ROSETTA 2.2 cm squared. Trace aortic valve regurgitation. 6-Moderate tricuspid valve regurgitation. 7-There is no pericardial effusion. 8-Right atrial pressure is around 15 mm of mercury. 9-There are no prior echocardiogram studies to compare. Nithya Machado MD (Electronically Signed) Final Date: 24 November 2020 19:24 S
--- NOTE | 2020-11-23 03:50 | PC.NURSE ---
sitter at bedside
[2020-11-23] MEDS: piperacillin-tazobactam 3.375 GM in sodium chloride 0.9% (plus) 50 ML IV ×3 (03:59→21:14)
[2020-11-23 04:03] LABS: Basophils % 0.1 %; Hematocrit 51.1 % (42.0-52.0); Hemoglobin 15.9 g/dL (11.7-16.6); Lymphocytes # 1.6 10^3/uL (0.8-4.8); Lymphocytes % 7.8 %; Mean Corpuscular HGB Conc 31.1 g/dL (30.0-36.0); Mean Corpuscular Hemoglobin 30.8 pg (28.0-34.0); Mean Platelet Volume 11.4 fL (7.4-10.4); Monocytes # 1.6 10^3/uL (0.2-0.9); Monocytes % 7.9 %; Neutrophils # 16.85 10^3/uL (1.8-7.7); Neutrophils % 83.3 %; Nucleated Red Blood Cells % 0.1 %; Platelet Count 172 10^3/cmm (130-400); Red Blood Count 5.16 10^6/uL (4.1-5.3); Red Cell Distribution Width 15.8 % (12.1-15.1); White Blood Count 20.2 10^3/uL (4.0-10.0)
[2020-11-23 04:17] LABS: Lactate (Lactic Acid level) 2.3 mmol/L (0.5-2.2)
--- NOTE | 2020-11-23 04:23 | PC.NURSE ---
sitter at bedside 1:1
[2020-11-23 04:25] LABS: Anion Gap 19.5 (5-19); Blood Urea Nitrogen 46 mg/dL (8-23); Calcium 9.2 mg/dL (8.5-10.5); Carbon Dioxide 21 mmol/L (22-29); Chloride 105 mmol/L (98-107); Glucose 138 mg/dL (65-115); Osmolality Calculated 306 mOsm/kg (285-295); Potassium 4.5 mmol/L (3.5-5.1); Sodium 141 mmol/L (136-145)
[2020-11-23 04:40] LABS: Hepatitis A Antibody IgM Non-Reactive (Nonreactive); Hepatitis B Core AB, Total Non-Reactive (Nonreactive); Hepatitis B Surface AB 3.5 (0-8.5); Hepatitis B Surface Antigen Non-Reactive (Nonreactive); Hepatitis C Virus Antibody Non-Reactive (Nonreactive)
--- NOTE | 2020-11-23 05:08 | PC.NURSE ---
Sitter 1:1 at bedside. Pt appears to resting with eyes closed.
--- NOTE | 2020-11-23 06:13 | PC.NURSE ---
Sitter at bedside
--- NOTE | 2020-11-23 07:01 | PC.NURSE ---
Report to KEIKO Elizalde
--- NOTE | 2020-11-23 09:57 | DCPLANNER ---
Patients resident care aid asked to speak with case management social worker about power of securities attorney paperwork. sugar cane farm manager spoke with patient, she had power of securities attorney signed and notarized. sugar cane farm manager had paperwork put into patients chart, and got caretakers name and phone number and had it scanned into the chart. Care takers name is Linda Ortega, phone number is [phone] and [phone].
--- NOTE | 2020-11-23 10:01 | CT_ITS ---
WS: [id number] CT HEAD NONCONTRAST HISTORY: confusion TECHNIQUE: Contiguous axial imaging performed through the brain in 2.5 mm imaging. Bone and soft tiss ue windows. Sagittal and coronal reformats reviewed. All CT scans at [facility] use at ast one of these dose optimization techniques: automated exposure control; mA and/or kV adjustment pe r patient size (includes targeted exams where dose is matched to clinical indication); or iterative r econstruction. DLP: 632.42 mGy.cm COMPARISON: None available. No acute intracranial hemorrhage, midline shift or mass effect. Moderate atrophy and extensive chronic white matter disease. No midline shift. Ventricles: Ventricles and extra-axial spaces are prominent on the basis of central and peripheral a trophy. Extensive calcification in the distal vertebral artery and also through the intracranial carotid anitha acacia. Paranasal sinuses: As visualized are clear. Mastoid air cells: Well pneumatized. Calvarium and scalp: Skull is intact with no soft tissue edema or swelling. CT/CT head wo con* [id number] IMPRESSION: 1. No acute intracranial hemorrhage or edema. 2. Moderate atrophy with extensive chronic white matter disease. 3. 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
[2020-11-23] MEDS: enoxaparin 80 mg/0.8 mL Syringe 70 MG SUBCUT ×2 (10:15→21:13)
--- NOTE | 2020-11-23 10:33 | PM.PN ---
Subjective Subjective: Interval history: History and physical was reviewed. Patient was sleeping when I entered the room. He was in no obvious respiratory distress. Medications: Reviewed: Yes Vitals/I&O/Wt Last Vital Signs Temp 99.0 F 11/22/20 16:21 Pulse 94 11/23/20 06:51 Resp 15 11/23/20 06:51 BP 140/89 11/23/20 06:51 Pulse Ox 98 11/23/20 06:51 11/22/20 11/23/20 11/23/20 22:59 06:59 14:59 Intake Total 300 / 300 50 / 350 Output Total 2300 / 2300 Balance 300 / 300 -2250 / -1950 Weight last 48 hrs Weight 72.575 kg Physical Exam Narrative: EXAM NARRATIVE: General exam is no apparent distress Cardiovascular irregular, irregular with a 2/6 systolic murmur Lungs clear no wheezing or crackles Abdomen is soft, positive bowel sounds Extremities no cyanosis clubbing or edema, cap refill brisk In talking with the sitter he apparently was agitated at last shift. He required some antipsychotic for sedation. Urinary Catheter Management^: Nelson: Cath Placed During This Visit: yes Reason for Continuing Indwelling Catheter: Accurate Measurement of Urinary Output in Critically Ill Patients Urinary Catheter Date of Insertion: 11/22/20 Urinary Catheter Time of Insertion: 20:03 Data : 11/23/20 03:40 11/23/20 03:40 Micro: Microbiology 11/22/20 20:05 Bacterial Antigens - Final Urine,Voided 11/22/20 20:05 Legionella Urinary Antigen - Final Urine Catheterized 11/23/20 03:47 Blood Culture - Preliminary Blood SPECIMEN COLLECTED 11/23/20 03:40 Blood Culture - Preliminary Blood SPECIMEN COLLECTED A&P Assessment and plan (1) Bilateral pulmonary embolism: Full dose anticoagulation ICU admission Continue oxygen 3 L, titrate as indicated Check echocardiogram to determine if right heart strain is present Status: Acute (2) Congestive heart failure: Continue diuresis with oral Lasix. He received an IV dose last night. Check echocardiogram Status: Acute Qualifiers: Heart failure chronicity: acute on chronic Heart failure type: unspecified Qualified Code(s): I50.9 - Heart failure, unspecified (3) Sepsis: Blood culture, sputum culture Continue Zosyn and vancomycin Status: Acute (4) Community acquired pneumonia: See above Pulmonary toilet as needed MRSA PCR Awaiting Covid PCR. Continue contact/droplet isolation until this has returned Status: Acute Qualifiers: Laterality: unspecified laterality Qualified Code(s): J18.9 - Pneumonia, unspecified organism (5) BPH loc w urin obs/LUTS: Status: Acute (6) Splenic infarct: Full dose anticoagulation Status: Acute (7) Transaminitis: Hepatitis panel negative May be secondary to congestion from heart failure CT abdomen and pelvis did not demonstrate any obvious cholecystitis Status: Acute Additional A&P Information Acute encephalopathy. Likely secondary to pneumonia or pulmonary embolism but will check CT head noncontrast Atrial fibrillation. New onset. Likely add low-dose metoprolol when patient is more alert. Continue anticoagulation No evidence of significant polycythemia currently Diabetes. Sliding scale insulin Hypothyroidism check TSH. Full code DVT prophylaxis with Lovenox Attestations Medical Necessity Statement*: Needs continued hospital stay secondary to pulmonary emboli, encephalopathy, pneumonia requiring IV antibiotics and sepsis. Critical Care Time: 32 minutes spent in critical care time at bedside reviewing history and physical, examining patient in this individual with acute encephalopathy, evidence of cardiac and hepatic insufficiency with bilateral pulmonary emboli at high risk for morbidity and mortality. 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
[2020-11-23 11:25] LABS: Thyroid Stimulating Hormone 2.03 uIU/mL (0.27-4.20)
[2020-11-23] MEDS: FUROsemide 10 mg/mL SDV 2mL 20 MG IVP (12:01)
[2020-11-23 12:08] LABS: Glucose Point of Care 94 mg/dL (70-110)
[2020-11-23 15:37] LABS: Coronavirus Test Green County Not Detected
[2020-11-23 17:45] LABS: Glucose Point of Care 68 mg/dL (70-110)
[2020-11-23] MEDS: dextrose 50% syringe 50 mL IVP (18:56)
[2020-11-24] VITALS (213 sets, daily range): BP systolic 111–166; BP diastolic 75–112; PULSE 0–217; RESP 14–34; TEMP 36.1–37.1; O2SAT 88–99
[2020-11-24] MEDS: LORazepam 2 mg/mL INJ 1 mL IVP ×2 (01:38→02:30)
[2020-11-24 04:07] LABS: Basophils # 0.1 10^3/uL (0.0-0.1); Basophils % 0.3 %; Eosinophils # 0.1 10^3/uL (0.0-0.8); Eosinophils % 0.3 %; Hematocrit 55.9 % (42.0-52.0); Hemoglobin 16.3 g/dL (11.7-16.6); Lymphocytes # 1.5 10^3/uL (0.8-4.8); Lymphocytes % 8.5 %; Mean Corpuscular HGB Conc 29.2 g/dL (30.0-36.0); Mean Corpuscular Hemoglobin 30.5 pg (28.0-34.0); Mean Corpuscular Volume 104.7 fL (80-94); Monocytes # 1.6 10^3/uL (0.2-0.9); Monocytes % 9.4 %; Neutrophils # 13.83 10^3/uL (1.8-7.7); Neutrophils % 80.6 %; Nucleated Red Blood Cells % 0.2 %; Platelet Count 183 10^3/cmm (130-400); Red Blood Count 5.34 10^6/uL (4.1-5.3); Red Cell Distribution Width 15.9 % (12.1-15.1); White Blood Count 17.2 10^3/uL (4.0-10.0)
[2020-11-24] MEDS: piperacillin-tazobactam 3.375 GM in sodium chloride 0.9% (plus) 50 ML IV ×3 (04:22→21:29)
[2020-11-24 04:47] LABS: Alanine Aminotransferase 89 U/L (0-41); Alkaline Phosphatase 118 IU/L (40-130); Anion Gap 19.6 (5-19); Aspartate Amino Transferase 59 U/L (0-40); Blood Urea Nitrogen 40 mg/dL (8-23); Calcium 9.1 mg/dL (8.5-10.5); Carbon Dioxide 22 mmol/L (22-29); Chloride 106 mmol/L (98-107); Glucose 105 mg/dL (65-115); Magnesium 2.3 mg/dL (1.7-2.3); Osmolality Calculated 308 mOsm/kg (285-295); Potassium 3.6 mmol/L (3.5-5.1); Sodium 144 mmol/L (136-145); Total Bilirubin 2.2 mg/dL (0.15-1.2)
[2020-11-24 07:53] LABS: Glucose Point of Care 124 mg/dL (70-110)
[2020-11-24] MEDS: finasteride 5 mg Tablet PO (08:56)
[2020-11-24] MEDS: vancomycin 1,000 MG in sodium chloride 0.9% 250 ML 250 MG IV (08:56)
[2020-11-24] MEDS: metoprolol tartrate 25 mg Tablet PO ×2 (08:56→21:28)
[2020-11-24] MEDS: levothyroxine 25 mcg Tablet PO (08:56)
[2020-11-24] MEDS: aspirin 81 mg EC Tablet PO (08:56)
[2020-11-24] MEDS: enoxaparin 80 mg/0.8 mL Syringe 70 MG SUBCUT ×2 (08:57→21:29)
--- NOTE | 2020-11-24 09:18 | PC.CHAP ---
Pastoral Care Encounter/Spiritual Assessment Type of Contact [] Declined assembler unit visit [] Patient/Family/Request visit [] Outpatient visit [] Follow-up visit [] Physician referral [] Code/Alert [] Routine visit [] Staff referral [] Actively dying [] Patient sleeping [] Family support [] [] Out of room [] Palliative care [] [] Receiving care in room [] Pre-surgical visit [] Trauma [] Long length of stay [x] ICU visit [] Other: Relational/Emotional Strength [] Patient feels connected with others/family/visitors/staff [] Distress [] Loneliness/isolation [] Abandonment Spirituality of Patient [] Person of Mar[place]ruz [] Attends Druze of their [place] [] Believes in Prayer [] Reads Bible or Mu-Ism materials [] There are Spiritual issues to be addressed [employer] Demonstration Agent Interventions [x] Prayer [] Active listening [] Non-anxious presence [] Spiritual/emotional support [] Crisis/trauma care [] Spiritual counseling [] Bereavement support [] Provided bereavement packet [] Provided Bible/devotional materials [] Provided toy/stuffed animal, coloring book to patient or family member [] Provided Communion [] Anointing/Lawler [] Salvation [x] Completed spiritual assessment [] Other: Impact on Illness or Injury [] Angry [] Fearful [] Anxious [] Often cries [] Exhaustion [] Unable to work [] Unable to attend quaker [] Unable to walk/stand [] Unable to read [] Unable to drive [] Unable to eat/drink [] Unable to sleep [] Unable to be with family [] Patient intubated [] Other: Summary Time spent with patient
[2020-11-24] MEDS: FUROsemide 10 mg/mL SDV 2mL 20 MG IVP (10:17)
[2020-11-24] MEDS: OLANZapine 5 mg ODT 2.5 MG PO (10:17)
[2020-11-24 12:15] LABS: Glucose Point of Care 114 mg/dL (70-110)
--- NOTE | 2020-11-24 15:39 | P.PN_ITS ---
Subjective Subjective: Interval history: Keshav was able to say a few words but still seemed confused today. He did not appear to be in any shortness of breath. His heart rate has drifted up. Medications: Reviewed: Yes Vitals/I&O/Wt Last Vital Signs Temp 97.9 F 11/24/20 09:05 Pulse 108 H 11/24/20 15:25 Resp 34 H 11/24/20 14:30 BP 128/90 11/24/20 15:25 Pulse Ox 95 11/24/20 15:25 11/24/20 11/24/20 11/24/20 06:59 14:59 22:59 Intake Total 50 / 150 Output Total 675 / 1675 Balance -625 / -1525 Weight last 48 hrs Weight 72.575 kg Physical Exam Narrative: EXAM NARRATIVE: General exam is no apparent distress Cardiovascular irregular, irregular with a 2/6 systolic murmur Lungs clear no wheezing or crackles Abdomen is soft, positive bowel sounds Extremities no cyanosis clubbing or edema, cap refill brisk Urinary Catheter Management^: Nelson: Cath Placed During This Visit: yes Reason for Continuing Indwelling Catheter: Accurate Measurement of Urinary Output in Critically Ill Patients Urinary Catheter Date of Insertion: 11/22/20 Urinary Catheter Time of Insertion: 20:03 Data : 11/24/20 03:00 11/24/20 03:00 Micro: Microbiology 11/22/20 20:05 Urine Culture - Preliminary Urine Catheterized 11/23/20 03:47 Blood Culture - Preliminary Blood NEGATIVE TO DATE 11/23/20 03:40 Blood Culture - Preliminary Blood NEGATIVE TO DATE A&P Assessment and plan (1) Bilateral pulmonary embolism: Full dose anticoagulation He has weaned off oxygen He would be a candidate to go to stepdown unit. We will arrange transfer to a CSU Check echocardiogram to determine if right heart strain is present Status: Acute (2) Congestive heart failure: Continue diuresis with oral Lasix. He received an IV dose last night. Echocardiogram is pending Status: Acute Qualifiers: Heart failure chronicity: acute on chronic Heart failure type: unspecified Qualified Code(s): I50.9 - Heart failure, unspecified (3) Sepsis: Blood culture, sputum culture Continue Zosyn and vancomycin Status: Acute (4) Community acquired pneumonia: See above Pulmonary toilet as needed MRSA PCR Covid PCR is negative Status: Acute Qualifiers: Laterality: unspecified laterality Qualified Code(s): J18.9 - Pneumonia, unspecified organism (5) BPH loc w urin obs/LUTS: Status: Acute (6) Splenic infarct: Full dose anticoagulation Status: Acute (7) Transaminitis: Hepatitis panel negative May be secondary to congestion from heart failure CT abdomen and pelvis did not demonstrate any obvious cholecystitis Status: Acute Additional A&P Information Acute encephalopathy. Likely secondary to pneumonia or pulmonary embolism and pneumonia. CT head demonstrated nothing acute Atrial fibrillation. New onset. Metoprolol added in heart rate fair control. Continue anticoagulation No evidence of significant polycythemia currently Diabetes. Sliding scale insulin Hypothyroidism TSH checked and normal Full code DVT prophylaxis with Lovenox Attestations Medical Necessity Statement*: Needs continued hospitalization for encephalopathy and bilateral pulmonary emboli. Coding Level of Care Code Acute Sales Merchandising Specialist for Chg Fwd Diagnoses Bilateral pulmonary embolism I26.99 Congestive heart failure I50.9 Heart failure chronicity: acute on chronic Heart failure type: unspecified Sepsis A41.9 Community acquired pneumonia J18.9 Laterality: unspecified laterality BPH loc w urin obs/LUTS N40.1 Splenic infarct D73.5 Transaminitis R74.01
[2020-11-24 17:38] LABS: Glucose Point of Care 153 mg/dL (70-110)
[2020-11-24 20:39] LABS: Glucose Point of Care 130 mg/dL (70-110)
[2020-11-24 21:22] LABS: Glucose Point of Care 122 mg/dL (70-110)
[2020-11-25] VITALS (9 sets, daily range): BP systolic 131–162; BP diastolic 95–113; PULSE 89–125; RESP 13–27; TEMP 35.8–36.8; O2SAT 91–97
[2020-11-25] MEDS: vancomycin 1,000 MG in sodium chloride 0.9% 250 ML 250 MG IV (03:26)
[2020-11-25 04:27] LABS: Basophils % 0.2 %; Eosinophils # 0.1 10^3/uL (0.0-0.8); Eosinophils % 0.5 %; Hematocrit 53.3 % (42.0-52.0); Hemoglobin 16.4 g/dL (11.7-16.6); Lymphocytes # 1.7 10^3/uL (0.8-4.8); Lymphocytes % 11.4 %; Mean Corpuscular HGB Conc 30.8 g/dL (30.0-36.0); Mean Corpuscular Hemoglobin 30.4 pg (28.0-34.0); Mean Corpuscular Volume 98.9 fL (80-94); Mean Platelet Volume 11.4 fL (7.4-10.4); Monocytes # 1.3 10^3/uL (0.2-0.9); Monocytes % 8.7 %; Neutrophils # 11.66 10^3/uL (1.8-7.7); Neutrophils % 78.2 %; Nucleated Red Blood Cells % 0.1 %; Platelet Count 199 10^3/cmm (130-400); Red Blood Count 5.39 10^6/uL (4.1-5.3); White Blood Count 14.9 10^3/uL (4.0-10.0)
[2020-11-25] MEDS: piperacillin-tazobactam 3.375 GM in sodium chloride 0.9% (plus) 50 ML IV ×3 (04:30→19:51)
[2020-11-25 05:03] LABS: Alanine Aminotransferase 72 U/L (0-41); Albumin Level 2.9 g/dL (3.5-5.2); Alkaline Phosphatase 113 IU/L (40-130); Blood Urea Nitrogen 41 mg/dL (8-23); Calcium 9.2 mg/dL (8.5-10.5); Carbon Dioxide 25 mmol/L (22-29); Chloride 110 mmol/L (98-107); Globulin 3.1 g/dL (1.3-4.6); Glucose 115 mg/dL (65-115); Osmolality Calculated 321 mOsm/kg (285-295); Sodium 150 mmol/L (136-145); Total Bilirubin 2.1 mg/dL (0.15-1.2)
[2020-11-25 05:18] LABS: Anion Gap 18.7 (5-19); Aspartate Amino Transferase 47 U/L (0-40); Potassium 3.7 mmol/L (3.5-5.1)
[2020-11-25 06:38] LABS: Glucose Point of Care 144 mg/dL (70-110)
--- NOTE | 2020-11-25 06:39 | PC.NURSE ---
PT HAD AN UNEVENTFUL NIGHT. PT PULLED OUT IV. NEW IV WAS INSERTED IN THE LEFT FA 20G. MORNING LABS WERE OBTAINED. IV DRAWS AND FLUSHES WELL. PT TOLERATED WELL.
[2020-11-25] MEDS: enoxaparin 80 mg/0.8 mL Syringe 70 MG SUBCUT ×2 (09:14→21:10)
[2020-11-25] MEDS: levothyroxine 25 mcg Tablet PO (09:15)
[2020-11-25] MEDS: metoprolol tartrate 25 mg Tablet PO (09:15)
[2020-11-25] MEDS: finasteride 5 mg Tablet PO (09:15)
[2020-11-25] MEDS: aspirin 81 mg EC Tablet PO (09:15)
--- NOTE | 2020-11-25 10:29 | DCPLANNER ---
Called pt's office mail clerk, Linda Ortega and completed IMM on 11/25/20 @ 1014. Copy of rights are in pt room.
--- NOTE | 2020-11-25 11:10 | P.PN_ITS ---
Subjective Subjective: Interval history: Keshav is very confused today. I talked with his caregiver who reports she is his power of ferris wheel attendant and has been for the last 3 to 4 months. He has significant dementia, and she has been helping him with his ADLs. She believes he will likely need nursing facility placement. Medications: Reviewed: Yes Vitals/I&O/Wt Last Vital Signs Temp 96.5 F L 11/25/20 08:00 Pulse 125 H 11/25/20 08:00 Resp 18 11/25/20 08:00 BP 158/95 11/25/20 08:00 Pulse Ox 93 11/25/20 08:00 11/24/20 11/25/20 11/25/20 22:59 06:59 14:59 Intake Total 350 / 365 300 / 665 Output Total 550 / 550 450 / 1000 Balance -200 / -185 -150 / -335 Physical Exam Narrative: EXAM NARRATIVE: General exam is no apparent distress Cardiovascular irregular, irregular with a 2/6 systolic murmur Lungs clear no wheezing or crackles Abdomen is soft, positive bowel sounds Extremities no cyanosis clubbing or edema, cap refill brisk Urinary Catheter Management^: Nelson: Cath Placed During This Visit: yes Reason for Continuing Indwelling Catheter: Accurate Measurement of Urinary Output in Critically Ill Patients Urinary Catheter Date of Insertion: 11/22/20 Urinary Catheter Time of Insertion: 20:03 Data : 11/25/20 03:02 11/25/20 03:02 Micro: Microbiology 11/22/20 20:05 Urine Culture - Final Urine Catheterized A&P Assessment and plan (1) Bilateral pulmonary embolism: Full dose anticoagulation He has weaned off oxygen Initiate Eliquis when we can get him to reliably take medication by mouth Echocardiogram demonstrated reduced EF of 40%, normal RV function but pulmonary hypertension with a pressure of 51 mmHg. Mild aortic valve stenosis. Moderate TR Status: Acute (2) Congestive heart failure: See above. Hold further diuresis with Lasix as he is not taking p.o. well Add back a slight amount of fluid secondary to the hyponatremia which is now presented. Half-normal saline at 50 cc an hour Status: Acute Qualifiers: Heart failure chronicity: acute on chronic Heart failure type: unspecified Qualified Code(s): I50.9 - Heart failure, unspecified (3) Sepsis: Blood culture negative to date Continue Zosyn. Discontinue vancomycin. MRSA PCR negative Status: Acute (4) Community acquired pneumonia: See above Pulmonary toilet as needed MRSA PCR negative. Will discontinue vancomycin Covid PCR is negative White blood cell count decreasing Status: Acute Qualifiers: Laterality: unspecified laterality Qualified Code(s): J18.9 - Pneumonia, unspecified organism (5) BPH loc w urin obs/LUTS: Status: Acute (6) Splenic infarct: Full dose anticoagulation Status: Acute (7) Transaminitis: Hepatitis panel negative May be secondary to congestion from heart failure CT abdomen and pelvis did not demonstrate any obvious cholecystitis Improving Status: Acute Additional A&P Information Acute encephalopathy. Likely secondary to pneumonia or pulmonary embolism and pneumonia. CT head demonstrated nothing acute. Overall unchanged Atrial fibrillation. New onset. Increase metoprolol No evidence of significant polycythemia currently Diabetes. Sliding scale insulin Hypothyroidism TSH checked and normal Dementia. Check B12 level. CT head, TSH already done Full code DVT prophylaxis with Lovenox May need [facility] facility placement Attestations Medical Necessity Statement*: Needs continued hospitalization for pulmonary emboli, encephalopathy, new onset atrial fibrillation for adjustment of medication and to await improvement encephalopathy where he can take reliably take p.o. intake Coding Level of Care Code Acute Vasc Tech for [facility] Fwd Diagnoses Bilateral pulmonary embolism I26.99 Congestive heart failure I50.9 Heart failure chronicity: acute on chronic Heart failure type: unspecified Sepsis A41.9 Community acquired pneumonia J18.9 Laterality: unspecified laterality BPH loc w urin obs/LUTS N40.1 Splenic infarct D73.5 Transaminitis R74.01
--- NOTE | 2020-11-25 11:11 | PC.NURSE ---
blood sugar is 131
[2020-11-25 13:11] LABS: Vitamin B12 > 2000 pg/mL (232-1245)
[2020-11-25] MEDS: sodium chloride 0.45% 1,000 ML 50 ML IV (14:23)
--- NOTE | 2020-11-25 19:58 | PC.NURSE ---
PT IS PULLING AT IV AND TELE WIRES. PT IS MAKING UNRECOGNIZABLE SOUNDS WITH MOUTH OPEN. WILL CONTINUE TO MONITOR.
[2020-11-25] MEDS: metoprolol tartrate 50 mg Tablet PO (21:10)
[2020-11-25] MEDS: haloperidol inj 5 mg/mL INJ 1 mL 1 MG IM (21:36)
[2020-11-25 22:08] LABS: Glucose Point of Care 139 mg/dL (70-110)
--- NOTE | 2020-11-25 22:18 | PC.NURSE ---
PT HAS CALMED DOWN. PT RESTING IN BED WITH EYES OPEN AT THIS TIME. PT RESPONDING BETTER THAN EARLIER. WILL CONTINUE TO MONITOR.
[2020-11-26] VITALS (10 sets, daily range): BP systolic 107–163; BP diastolic 76–113; PULSE 75–100; RESP 12–22; TEMP 35.6–36.6; O2SAT 92–98
[2020-11-26] MEDS: haloperidol inj 5 mg/mL INJ 1 mL 1 MG IM (02:37)
[2020-11-26 03:50] LABS: Basophils % 0.3 %; Eosinophils # 0.1 10^3/uL (0.0-0.8); Eosinophils % 0.7 %; Hematocrit 57.2 % (42.0-52.0); Hemoglobin 16.5 g/dL (11.7-16.6); Lymphocytes # 2.1 10^3/uL (0.8-4.8); Lymphocytes % 16.5 %; Mean Corpuscular HGB Conc 28.8 g/dL (30.0-36.0); Mean Corpuscular Hemoglobin 29.8 pg (28.0-34.0); Mean Corpuscular Volume 103.4 fL (80-94); Mean Platelet Volume 11.6 fL (7.4-10.4); Monocytes # 1.1 10^3/uL (0.2-0.9); Monocytes % 8.4 %; Neutrophils # 9.32 10^3/uL (1.8-7.7); Neutrophils % 73.2 %; Nucleated Red Blood Cells % 0.3 %; Platelet Count 200 10^3/cmm (130-400); Red Blood Count 5.53 10^6/uL (4.1-5.3); Red Cell Distribution Width 16.1 % (12.1-15.1); White Blood Count 12.7 10^3/uL (4.0-10.0)
[2020-11-26 04:29] LABS: Alanine Aminotransferase 55 U/L (0-41); Albumin Level 2.8 g/dL (3.5-5.2); Alkaline Phosphatase 102 IU/L (40-130); Aspartate Amino Transferase 34 U/L (0-40); Blood Urea Nitrogen 40 mg/dL (8-23); Calcium 8.9 mg/dL (8.5-10.5); Carbon Dioxide 27 mmol/L (22-29); Chloride 115 mmol/L (98-107); Globulin 3.1 g/dL (1.3-4.6); Glucose 119 mg/dL (65-115); Magnesium 2.4 mg/dL (1.7-2.3); Osmolality Calculated 331 mOsm/kg (285-295); Sodium 155 mmol/L (136-145); Total Bilirubin 1.9 mg/dL (0.15-1.2); Total Protein 5.9 g/dL (6.6-8.7)
[2020-11-26 04:31] LABS: Anion Gap 16.3 (5-19); Potassium 3.3 mmol/L (3.5-5.1)
[2020-11-26] MEDS: piperacillin-tazobactam 3.375 GM in sodium chloride 0.9% (plus) 50 ML IV ×3 (04:32→21:01)
--- NOTE | 2020-11-26 04:35 | PC.NURSE ---
PT IS STILL PULLING AT WIRES AND IV AND MILLER. 2ND DOSE OF HALDOL WAS GIVEN. WILL CONTINUE TO MONITOR.
[2020-11-26 06:22] LABS: Glucose Point of Care 99 mg/dL (70-110)
[2020-11-26] MEDS: dextrose 5% 1,000 ML 75 ML IV (08:40)
--- NOTE | 2020-11-26 09:00 | P.PN_ITS ---
Subjective Subjective: Interval history: Keshav tries to say a few words. No specific complaints but communication is still difficult. Medications: Reviewed: Yes Vitals/I&O/Wt Last Vital Signs Temp 96.0 F L 11/26/20 07:20 Pulse 81 11/26/20 07:20 Resp 22 H 11/26/20 07:20 BP 161/104 11/26/20 07:20 Pulse Ox 95 11/26/20 07:20 11/25/20 11/26/20 11/26/20 22:59 06:59 14:59 Intake Total 230 / 280 50 / 330 60 / 60 Output Total 450 / 450 300 / 750 Balance -220 / -170 -250 / -420 60 / 60 Physical Exam Narrative: EXAM NARRATIVE: General exam is no apparent distress Cardiovascular irregular, irregular with a 2/6 systolic murmur Lungs clear no wheezing or crackles Abdomen is soft, positive bowel sounds Extremities no cyanosis clubbing or edema, cap refill brisk Urinary Catheter Management^: Nelson: Cath Placed During This Visit: yes Reason for Continuing Indwelling Catheter: Accurate Measurement of Urinary Output in Critically Ill Patients Urinary Catheter Date of Insertion: 11/22/20 Urinary Catheter Time of Insertion: 20:03 Data : 11/26/20 03:11 11/26/20 03:11 Micro: Microbiology 11/22/20 20:05 Urine Culture - Final Urine Catheterized A&P Assessment and plan (1) Bilateral pulmonary embolism: Full dose anticoagulation He has weaned off oxygen Initiate Eliquis when we can get him to reliably take medication by mouth Echocardiogram demonstrated reduced EF of 40%, normal RV function but pulmonary hypertension with a pressure of 51 mmHg. Mild aortic valve stenosis. Moderate TR Status: Acute (2) Congestive heart failure: See above. Resolved. Diuresis was held shortly after admission. Despite giving half-normal saline yesterday and initiating diet his sodium has climbed further. Status: Acute Qualifiers: Heart failure chronicity: acute on chronic Heart failure type: unspecified Qualified Code(s): I50.9 - Heart failure, unspecified (3) Sepsis: Blood culture negative to date Continue Zosyn. Discontinue vancomycin. MRSA PCR negative Sepsis has resolved Status: Acute (4) Community acquired pneumonia: See above Pulmonary toilet as needed MRSA PCR negative. Vancomycin was discontinued Covid PCR is negative White blood cell count decreased Status: Acute Qualifiers: Laterality: unspecified laterality Qualified Code(s): J18.9 - Pneumonia, unspecified organism (5) BPH loc w urin obs/LUTS: Status: Acute (6) Splenic infarct: Full dose anticoagulation Status: Acute (7) Transaminitis: Hepatitis panel negative May be secondary to congestion from heart failure CT abdomen and pelvis did not demonstrate any obvious cholecystitis Improving Status: Acute Additional A&P Information Acute encephalopathy. Likely secondary to pneumonia or pulmonary embolism and pneumonia. CT head demonstrated nothing acute. Improving Atrial fibrillation. New onset. Continue metoprolol. Fully anticoagulated. Hypernatremia. Worse today. Initiate D5W. Recheck BMP this afternoon. No evidence of significant polycythemia currently Diabetes. Sliding scale insulin Hypothyroidism TSH checked and normal Dementia. Check B12 level. CT head, TSH already done Full code DVT prophylaxis with Lovenox May need [facility] facility placement Attestations Medical Necessity Statement*: Needs continued hospital stay for treatment of electrolyte disturbance, IV antibiotics for pneumonia. Coding Level of Care Code Acute Educational Sign Language Interpreter for [facility] Fwd Diagnoses Bilateral pulmonary embolism I26.99 Congestive heart failure I50.9 Heart failure chronicity: acute on chronic Heart failure type: unspecified Sepsis A41.9 Community acquired pneumonia J18.9 Laterality: unspecified laterality BPH loc w urin obs/LUTS N40.1 Splenic infarct D73.5 Transaminitis R74.01
[2020-11-26] MEDS: enoxaparin 80 mg/0.8 mL Syringe 70 MG SUBCUT ×2 (09:24→21:12)
[2020-11-26] MEDS: finasteride 5 mg Tablet PO (09:24)
[2020-11-26] MEDS: aspirin 81 mg EC Tablet PO (09:24)
[2020-11-26] MEDS: losartan 50 mg Tablet PO (09:24)
[2020-11-26] MEDS: levothyroxine 25 mcg Tablet PO (09:24)
[2020-11-26] MEDS: potassium chloride ER 20 mEq Tablet 40 MEQ PO (09:24)
[2020-11-26] MEDS: metoprolol tartrate 50 mg Tablet PO ×2 (09:26→21:13)
[2020-11-26 10:54] LABS: Glucose Point of Care 144 mg/dL (70-110)
[2020-11-26 14:32] LABS: Blood Urea Nitrogen 40 mg/dL (8-23); Calcium 8.5 mg/dL (8.5-10.5); Carbon Dioxide 20 mmol/L (22-29); Chloride 117 mmol/L (98-107); Glucose 227 mg/dL (65-115); Osmolality Calculated 329 mOsm/kg (285-295); Sodium 151 mmol/L (136-145)
[2020-11-26 14:42] LABS: Anion Gap 17.3 (5-19); Potassium 3.3 mmol/L (3.5-5.1)
[2020-11-26 17:28] LABS: Glucose Point of Care 129 mg/dL (70-110)
[2020-11-26] MEDS: lidocaine 1% 5 ML in potassium chloride premix 100 ML 25 ML IV (17:30)
[2020-11-26 21:08] LABS: Glucose Point of Care 78 mg/dL (70-110)
[2020-11-27] VITALS (8 sets, daily range): BP systolic 108–186; BP diastolic 76–92; PULSE 73–91; RESP 18–20; TEMP 36.1–36.4; O2SAT 94–97
[2020-11-27] MEDS: piperacillin-tazobactam 3.375 GM in sodium chloride 0.9% (plus) 50 ML IV ×3 (03:54→21:57)
[2020-11-27] MEDS: dextrose 5% 1,000 ML 50 ML IV (03:59)
[2020-11-27 07:12] LABS: Glucose Point of Care 88 mg/dL (70-110)
--- NOTE | 2020-11-27 08:38 | AMB.MCA ---
Patient Information COVID 19 other sytmptoms: negative chest pain or respiratory distress Treatment prior to arrival: none [facility] COVID test results: SARS-CoV-2 Antigen (Rapid) Negative (Negative) 11/22/20 17:20 11/22/20 Nasal/Oral Coronavirus 2019 PCR Not detected 11/22/20 17:20 11/22/20
[2020-11-27] MEDS: levothyroxine 25 mcg Tablet PO (09:06)
[2020-11-27] MEDS: finasteride 5 mg Tablet PO (09:06)
[2020-11-27] MEDS: aspirin 81 mg EC Tablet PO (09:06)
[2020-11-27] MEDS: losartan 50 mg Tablet PO (09:06)
[2020-11-27] MEDS: enoxaparin 80 mg/0.8 mL Syringe 70 MG SUBCUT ×2 (09:07→21:57)
[2020-11-27] MEDS: metoprolol tartrate 50 mg Tablet PO ×2 (09:11→21:57)
[2020-11-27 10:59] LABS: Glucose Point of Care 124 mg/dL (70-110)
[2020-11-27 12:55] LABS: Anion Gap 15.7 (5-19); Blood Urea Nitrogen 35 mg/dL (8-23); Calcium 8.7 mg/dL (8.5-10.5); Carbon Dioxide 23 mmol/L (22-29); Chloride 122 mmol/L (98-107); Glucose 144 mg/dL (65-115); Osmolality Calculated 335 mOsm/kg (285-295); Potassium 3.7 mmol/L (3.5-5.1); Sodium 157 mmol/L (136-145)
--- NOTE | 2020-11-27 13:17 | P.PN_ITS ---
Subjective Subjective: Interval history: Keshav awakens easily. He is very confused. He has been able to eat a little bit of pudding. Had some agitation last night. This required some Haldol. Medications: Reviewed: Yes Vitals/I&O/Wt Last Vital Signs Temp 97.0 F L 11/27/20 07:03 Pulse 85 11/27/20 10:23 Resp 18 11/27/20 10:23 BP 132/92 11/27/20 12:00 Pulse Ox 94 11/27/20 10:23 11/26/20 11/27/20 11/27/20 22:59 06:59 14:59 Intake Total 1050 / 1160 50 / 1210 120 / 120 Output Total 325 / 325 Balance 725 / 835 50 / 885 120 / 120 Physical Exam 2 Narrative: EXAM NARRATIVE: General exam is no apparent distress Cardiovascular irregular, irregular with a 2/6 systolic murmur Lungs clear no wheezing or crackles Abdomen is soft, positive bowel sounds Extremities no cyanosis clubbing or edema, cap refill brisk Urinary Catheter Management^: Nelson: Cath Placed During This Visit: yes Reason for Continuing Indwelling Catheter: Acute Urinary Retention or Obstruction Urinary Catheter Date of Insertion: 11/22/20 Urinary Catheter Time of Insertion: 20:03 Data : 11/26/20 03:11 11/27/20 12:20 A&P Assessment and plan (1) Bilateral pulmonary embolism: Full dose anticoagulation has been initiated. He has weaned off oxygen Initiate Eliquis when we can get him to reliably take medication by mouth Echocardiogram demonstrated reduced EF of 40%, normal RV function but pulmonary hypertension with a pressure of 51 mmHg. Mild aortic valve stenosis. Moderate TR Guardian is indicating they may want hospice. Discharge planning is discussing this. Status: Acute (2) Congestive heart failure: See above. Resolved. Diuresis was held shortly after admission. Status: Acute Qualifiers: Heart failure chronicity: acute on chronic Heart failure type: unspecified Qualified Code(s): I50.9 - Heart failure, unspecified (3) Sepsis: Blood culture negative to date Continue Zosyn. Vancomycin was discontinued. MRSA PCR negative Sepsis has resolved Status: Acute (4) Community acquired pneumonia: See above Pulmonary toilet as needed MRSA PCR negative. Vancomycin was discontinued Covid PCR is negative White blood cell count decreased Status: Acute Qualifiers: Laterality: unspecified laterality Qualified Code(s): J18.9 - Pneumonia, unspecified organism (5) BPH loc w urin obs/LUTS: Status: Acute (6) Splenic infarct: Full dose anticoagulation Status: Acute (7) Transaminitis: Hepatitis panel negative May be secondary to congestion from heart failure CT abdomen and pelvis did not demonstrate any obvious cholecystitis Improving Status: Acute Additional A&P Information Acute encephalopathy. Likely secondary to pneumonia or pulmonary embolism and p neumonia. CT head demonstrated nothing acute. Improved with still has significant underlying dementia with agitation Atrial fibrillation. New onset. Continue metoprolol. Fully anticoagulated. Hypernatremia. Worse today. Increase D5W to 75 cc an hour. This was improving yesterday and a quick rate so the infusion was decreased to 50 cc an hour. Recheck sodium in 4 to 5 hours No evidence of significant polycythemia currently Diabetes. Sliding scale insulin Hypothyroidism TSH checked and normal Dementia. Check B12 level. CT head, TSH already done Full code DVT prophylaxis with Lovenox Considering hospice placement Attestations Medical Necessity Statement*: Needs continued hospitalization for adjustment of medications for electrolyte abnormality, while consideration for hospice. 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
[2020-11-27 17:07] LABS: Glucose Point of Care 117 mg/dL (70-110)
[2020-11-27 19:24] LABS: Blood Urea Nitrogen 38 mg/dL (8-23); Calcium 8.7 mg/dL (8.5-10.5); Carbon Dioxide 24 mmol/L (22-29); Chloride 118 mmol/L (98-107); Glucose 162 mg/dL (65-115); Osmolality Calculated 327 mOsm/kg (285-295); Sodium 152 mmol/L (136-145)
[2020-11-27 19:26] LABS: Anion Gap 13.6 (5-19); Potassium 3.6 mmol/L (3.5-5.1)
[2020-11-27 21:23] LABS: Glucose Point of Care 164 mg/dL (70-110)
[2020-11-28] MEDS: dextrose 5% 1,000 ML 50 ML IV (00:50)
[2020-11-28 03:55] VITALS: BP 141/86; PULSE 65; RESP 20; TEMP 36.6; O2SAT 95
[2020-11-28] MEDS: piperacillin-tazobactam 3.375 GM in sodium chloride 0.9% (plus) 50 ML IV ×3 (04:53→20:51)
[2020-11-28 06:15] LABS: Basophils % 0.3 %; Eosinophils # 0.3 10^3/uL (0.0-0.8); Eosinophils % 2.1 %; Hematocrit 52.8 % (42.0-52.0); Hemoglobin 15.5 g/dL (11.7-16.6); Lymphocytes # 2.4 10^3/uL (0.8-4.8); Lymphocytes % 18.7 %; Mean Corpuscular HGB Conc 29.4 g/dL (30.0-36.0); Mean Corpuscular Hemoglobin 30.2 pg (28.0-34.0); Mean Corpuscular Volume 102.7 fL (80-94); Mean Platelet Volume 11.5 fL (7.4-10.4); Monocytes # 0.8 10^3/uL (0.2-0.9); Monocytes % 6.1 %; Neutrophils # 9.15 10^3/uL (1.8-7.7); Neutrophils % 72.1 %; Nucleated Red Blood Cells % 0.2 %; Platelet Count 200 10^3/cmm (130-400); Red Blood Count 5.14 10^6/uL (4.1-5.3); Red Cell Distribution Width 15.9 % (12.1-15.1); White Blood Count 12.7 10^3/uL (4.0-10.0)
[2020-11-28 07:24] LABS: Anion Gap 13.1 (5-19); Blood Urea Nitrogen 33 mg/dL (8-23); Calcium 8.7 mg/dL (8.5-10.5); Carbon Dioxide 28 mmol/L (22-29); Chloride 121 mmol/L (98-107); Glucose 114 mg/dL (65-115); Osmolality Calculated 336 mOsm/kg (285-295); Potassium 3.1 mmol/L (3.5-5.1); Sodium 159 mmol/L (136-145)
[2020-11-28 07:26] LABS: Glucose Point of Care 94 mg/dL (70-110)
[2020-11-28 08:22] VITALS: BP 144/94; PULSE 75; RESP 16; TEMP 36.4; O2SAT 96
[2020-11-28] MEDS: enoxaparin 80 mg/0.8 mL Syringe 70 MG SUBCUT ×2 (11:01→20:50)
[2020-11-28 12:00] VITALS: BP 131/88; PULSE 78; RESP 16; TEMP 36.6; O2SAT 92
[2020-11-28 12:51] LABS: Glucose Point of Care 148 mg/dL (70-110)
--- NOTE | 2020-11-28 13:39 | PM.PN ---
Subjective Subjective: Interval history: This is a 80-year-old male who presented to the hospital with confusion. He was admitted with bilateral PE and splenic infarct. Also noted to be in CHF. He has had multiorgan involvement including liver and heart. This morning seen with sitter confused. Medications: Reviewed: Yes Vitals/I&O/Wt Last Vital Signs Temp 97.9 F 11/28/20 12:00 Pulse 78 11/28/20 12:00 Resp 16 11/28/20 12:00 BP 131/88 11/28/20 12:00 Pulse Ox 92 11/28/20 12:00 11/27/20 11/28/20 11/28/20 22:59 06:59 14:59 Intake Total 50 / 220 1050 / 1270 600 / 600 Output Total 650 / 650 150 / 800 Balance -600 / -430 900 / 470 600 / 600 Physical Exam Const: GENERAL APPEARANCE: lethargic ORIENTATION/CONSCIOUSNESS: Yes confused and Yes lethargic Resp: COMMON NORMALS: normal respiratory effort and No retractions Cardio: COMMON NORMALS: regular rhythm RHYTHM: regular rhythm GI: COMMON NORMALS: Soft to palpation and non-tender PALPATION: Yes Soft to palpation Neuro: SENSORIUM/ORIENTATION: Yes Orientation impaired and Yes lethargic Skin: COMMON NORMALS: no rashes or lesions noted and no wounds GENERAL SKIN EXAM: no rashes or lesions noted Urinary Catheter Management^: Nelson: Cath Placed During This Visit: yes Reason for Continuing Indwelling Catheter: Acute Urinary Retention or Obstruction Urinary Catheter Date of Insertion: 11/22/20 Urinary Catheter Time of Insertion: 20:03 Data : 11/28/20 05:35 11/28/20 05:35 Micro: Microbiology 11/23/20 03:47 Blood Culture - Final Blood NO GROWTH AFTER 5 DAYS 11/23/20 03:40 Blood Culture - Final Blood NO GROWTH AFTER 5 DAYS A&P Assessment and plan (1) Bilateral pulmonary embolism: Status: Acute (2) Congestive heart failure: Status: Acute Qualifiers: Heart failure chronicity: acute on chronic Heart failure type: unspecified Qualified Code(s): I50.9 - Heart failure, unspecified Additional A&P Information 1) Bilateral pulmonary embolism: Full dose anticoagulation has been initiated. off oxygen Initiate Eliquis when we can get him to reliably take medication by mouth Echocardiogram demonstrated reduced EF of 40%, normal RV function but pulmonary hypertension with a pressure of 51 mmHg. Mild aortic valve stenosis. Moderate TR Guardian is indicating they may want hospice. Discharge planning is discussing this. (2) Congestive heart failure: cozaar, metoprolol (3) Sepsis: Blood culture negative to date Continue Zosyn. Vancomycin was discontinued. MRSA PCR negative Sepsis has resolved (4) Community acquired pneumonia: See above Pulmonary toilet as needed MRSA PCR negative. Vancomycin was discontinued Covid PCR is negative zosyn (5) BPH loc w urin obs/LUTS: (6) Splenic infarct: Full dose anticoagulation (7) Transaminitis: Hepatitis panel negative May be secondary to congestion from heart failure CT abdomen and pelvis did not demonstrate any obvious cholecystitis Acute encephalopathy. Likely secondary to pneumonia or pulmonary embolism and pneumonia. CT head demonstrated nothing acute. Atrial fibrillation. New onset. Continue metoprolol. Fully anticoagulated. Hypernatremia. Worse today. Increase D5W to 75 cc an hour. This was improving yesterday and a quick rate so the infusion was decreased to 50 cc an hour Diabetes. Sliding scale insulin Hypothyroidism TSH checked and normal on replacement Dementia. Check B12 level. 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
[2020-11-28 14:00] VITALS: PULSE 78
[2020-11-28 16:00] VITALS: BP 106/68; PULSE 88; RESP 17; TEMP 36.4; O2SAT 88
[2020-11-28 17:35] LABS: Glucose Point of Care 96 mg/dL (70-110)
[2020-11-28 20:00] VITALS: RESP 23; TEMP 36.7
[2020-11-28] MEDS: metoprolol tartrate 50 mg Tablet PO (21:13)
--- NOTE | 2020-11-28 22:53 | PC.NURSE ---
ID bracelet would not scan for glucose check. Blood glucose 207. 4 units given per SSI
[2020-11-29] VITALS (9 sets, daily range): BP systolic 124–143; BP diastolic 78–93; PULSE 70–99; RESP 17–20; TEMP 36.3–36.7; O2SAT 92–100
[2020-11-29] MEDS: dextrose 5% 1,000 ML 50 ML IV (01:16)
[2020-11-29] MEDS: piperacillin-tazobactam 3.375 GM in sodium chloride 0.9% (plus) 50 ML IV ×3 (04:50→20:59)
[2020-11-29 07:07] LABS: Glucose Point of Care 101 mg/dL (70-110)
[2020-11-29] MEDS: aspirin 81 mg EC Tablet PO (09:54)
[2020-11-29] MEDS: finasteride 5 mg Tablet PO (09:54)
[2020-11-29] MEDS: levothyroxine 25 mcg Tablet PO (09:54)
[2020-11-29] MEDS: enoxaparin 80 mg/0.8 mL Syringe 70 MG SUBCUT ×2 (09:54→21:00)
[2020-11-29] MEDS: metoprolol tartrate 50 mg Tablet PO ×2 (09:54→21:15)
[2020-11-29] MEDS: losartan 50 mg Tablet PO (09:54)
[2020-11-29 11:15] LABS: Glucose Point of Care 99 mg/dL (70-110)
--- NOTE | 2020-11-29 14:24 | PC.SLP ---
Attempted to see patient twice; this morning he had just received Ativan, and this afternoon, he is very restless. His intake with currently recommended diet is minimal. Will continue to follow to assess patient's ability to tolerate an advanced diet.
--- NOTE | 2020-11-29 16:05 | PC.SOCIAL ---
IM follow up Discussed with Linda Ortega and she verbalized understanding.
--- NOTE | 2020-11-29 16:57 | P.PN_ITS ---
Subjective Subjective: Interval history: This is a 80-year-old male who presented to the hospital with confusion. He was admitted with bilateral PE and splenic infarct. Also noted to be in CHF. He has had multi organ involvement including liver and heart. pt confused poor PO intake staff encouraging IVF running Medications: Reviewed: Yes Vitals/I&O/Wt Last Vital Signs Temp 97.8 F 11/29/20 15:08 Pulse 87 11/29/20 15:08 Resp 18 11/29/20 15:08 BP 135/87 11/29/20 15:08 Pulse Ox 99 11/29/20 15:08 11/29/20 11/29/20 11/29/20 06:59 14:59 22:59 Intake Total 2019 360 / 360 Output Total Balance 2018 360 / 360 Physical Exam Const: GENERAL APPEARANCE: lethargic ORIENTATION/CONSCIOUSNESS: Yes confused and Yes lethargic Resp: COMMON NORMALS: normal respiratory effort and No retractions Cardio: COMMON NORMALS: regular rhythm RHYTHM: regular rhythm GI: COMMON NORMALS: Soft to palpation and non-tender PALPATION: Yes Soft to palpation Neuro: SENSORIUM/ORIENTATION: Yes Orientation impaired and Yes lethargic Skin: COMMON NORMALS: no rashes or lesions noted and no wounds GENERAL SKIN EXAM: no rashes or lesions noted Urinary Catheter Management^: Nelson: Cath Placed During This Visit: yes, but has since been removed by the nurse Reason for Continuing Indwelling Catheter: Decision to DC Catheter Urinary Catheter Date of Insertion: 11/22/20 Urinary Catheter Time of Insertion: 20:03 Date Urinary Catheter Removed: 11/28/20 Time Urinary Catheter Discontinued: 15:00 Data : 11/28/20 05:35 11/28/20 05:35 A&P Assessment and plan (1) Bilateral pulmonary embolism: Status: Acute (2) Congestive heart failure: Status: Acute Qualifiers: Heart failure chronicity: acute on chronic Heart failure type: unspecified Qualified Code(s): I50.9 - Heart failure, unspecified Additional A&P Information 1) Bilateral pulmonary embolism: Full dose anticoagulation has been initiated. off oxygen Initiate Eliquis when we can get him to reliably take medication by mouth Echocardiogram demonstrated reduced EF of 40%, normal RV function but pulmonary hypertension with a pressure of 51 mmHg. Mild aortic valve stenosis. Moderate TR Guardian is indicating they may want hospice. Discharge planning is discussing this. (2) Congestive heart failure: cozaar, metoprolol (3) Sepsis: Blood culture negative to date Continue Zosyn. Vancomycin was discontinued. MRSA PCR negative Sepsis has resolved (4) Community acquired pneumonia: See above Pulmonary toilet as needed MRSA PCR negative. Vancomycin was discontinued Covid PCR is negative zosyn (5) BPH loc w urin obs/LUTS: (6) Splenic infarct: Full dose anticoagulation (7) Transaminitis: Hepatitis panel negative May be secondary to congestion from heart failure CT abdomen and pelvis did not demonstrate any obvious cholecystitis Acute encephalopathy. Likely secondary to pneumonia or pulmonary embolism and pneumonia. CT head demonstrated nothing acute. Atrial fibrillation. New onset. Continue metoprolol. Fully anticoagulated. Hypernatremia. inc IVF Hypokalemia -additional K written Diabetes. Sliding scale insulin Hypothyroidism TSH checked and normal on replacement Dementia. Check B12 level. 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
[2020-11-29 17:20] LABS: Alanine Aminotransferase 37 U/L (0-41); Albumin Level 2.6 g/dL (3.5-5.2); Alkaline Phosphatase 88 IU/L (40-130); Anion Gap 12.4 (5-19); Aspartate Amino Transferase 33 U/L (0-40); Blood Urea Nitrogen 26 mg/dL (8-23); Calcium 8.3 mg/dL (8.5-10.5); Carbon Dioxide 26 mmol/L (22-29); Chloride 118 mmol/L (98-107); Globulin 2.6 g/dL (1.3-4.6); Glucose 144 mg/dL (65-115); Osmolality Calculated 323 mOsm/kg (285-295); Potassium 3.4 mmol/L (3.5-5.1); Sodium 153 mmol/L (136-145); Total Bilirubin 1.5 mg/dL (0.15-1.2); Total Protein 5.2 g/dL (6.6-8.7)
[2020-11-29 17:29] LABS: Glucose Point of Care 161 mg/dL (70-110)
[2020-11-29] MEDS: dextrose 5%-sod chloride 0.45% 1,000 ML 75 ML IV (17:47)
[2020-11-29] MEDS: potassium chloride premix 100 ML 25 MEQ IV (17:47)
[2020-11-29 21:36] LABS: Glucose Point of Care 76 mg/dL (70-110)
[2020-11-29] MEDS: haloperidol inj 5 mg/mL INJ 1 mL 1 MG IM (21:58)
[2020-11-30] VITALS (9 sets, daily range): BP systolic 124–135; BP diastolic 67–84; PULSE 70–82; RESP 16–24; TEMP 36.2–36.9; O2SAT 92–98
[2020-11-30 01:46] LABS: Alanine Aminotransferase 38 U/L (0-41); Albumin Level 2.3 g/dL (3.5-5.2); Alkaline Phosphatase 84 IU/L (40-130); Blood Urea Nitrogen 27 mg/dL (8-23); Calcium 8.4 mg/dL (8.5-10.5); Carbon Dioxide 24 mmol/L (22-29); Chloride 121 mmol/L (98-107); Globulin 2.7 g/dL (1.3-4.6); Glucose 117 mg/dL (65-115); Osmolality Calculated 326 mOsm/kg (285-295); Sodium 155 mmol/L (136-145); Total Bilirubin 1.6 mg/dL (0.15-1.2)
[2020-11-30 01:48] LABS: Anion Gap 13.8 (5-19); Aspartate Amino Transferase 38 U/L (0-40); Potassium 3.8 mmol/L (3.5-5.1)
[2020-11-30] MEDS: piperacillin-tazobactam 3.375 GM in sodium chloride 0.9% (plus) 50 ML IV ×2 (02:57→12:02)
[2020-11-30 07:05] LABS: Glucose Point of Care 79 mg/dL (70-110)
[2020-11-30] MEDS: aspirin 81 mg EC Tablet PO (08:53)
[2020-11-30] MEDS: losartan 50 mg Tablet PO (08:53)
[2020-11-30] MEDS: metoprolol tartrate 50 mg Tablet PO (08:53)
[2020-11-30] MEDS: levothyroxine 25 mcg Tablet PO (08:53)
[2020-11-30] MEDS: finasteride 5 mg Tablet PO (08:54)
[2020-11-30] MEDS: enoxaparin 80 mg/0.8 mL Syringe 70 MG SUBCUT (08:54)
[2020-11-30] MEDS: dextrose 5%-sod chloride 0.45% 1,000 ML 75 ML IV (10:36)
[2020-11-30 11:10] LABS: Glucose Point of Care 112 mg/dL (70-110)
--- NOTE | 2020-11-30 15:59 | P.DS_ITS ---
Discharge Providers Date of Admission: 11/22/20 21:11 Date of Discharge: November 30, 2020 Attending Provider at Admission: Nithya Leon MD Attending Provider at Discharge: Buck Velazquez Primary Care Provider: Philip Gordillo MD Diagnoses at Discharge Discharge Diagnosis (1) Bilateral pulmonary embolism: Status: Acute (2) Congestive heart failure: Status: Acute Qualifiers: Heart failure chronicity: acute on chronic Heart failure type: uns pecified Qualified Code(s): I50.9 - Heart failure, unspecified Reason for Visit Reason for Visit: CHF Hospital Course Hospital Course 80 year old male who presented to the hospital with chief complaint of confusion. Patient is not a good historian, I was not able to get in contact with the preferred phone number that was in the chart, I was told by the ER that home health service nurse checked on him today, she noticed hypoxia, at baseline patient uses 3 L of oxygen, not sure whether he was on oxygen at that time, EMS was called, he was saturating well above 90% on 3 to nasal cannula as per EMS. He was brought to the ER for further evaluation. diagnostics in the ER revealed bilateral PE, sepsis, possible right middle lobe pneumonia, CHF exacerbation, he was loaded with therapeutic dose of Lovenox, & vancomycin. EKG showing atrial fibrillation heart rate ranging between 100 104. Systolic blood pressure 160 mmHg, no hypotension noticed, no right heart strain, however BNP extremely high 29,000, lactic acidemia 3.8, potassium 5.[address] abdomen also revealed splenic infarct along bilateral PE, gallstones without acute cholecystitis, BPH. Patient is stating that he was not feeling well past for his in the hospital, he is not able to give me proper answer whether he was using oxygen at home or not, he stating that there is a friend at home who he lives with. At the time my evaluation he is not complaining of chest pain shortness of breath, he will get out of bed and go home however he told me his name, year, date of name of the hospital but did not know name of the president. He was given antipsychotic in the ER as well. Upon admission to the hospital patient did not show significant improvement in clinical condition. Remained confused with poor p.o. intake and multiple ongoing issues. At the time I some care the patient family had decided on hospice level of care. Patient was discharged to hospice on 11/30/2020. He was discharged with comfort meds. Physical Exam Const: GENERAL APPEARANCE: lethargic ORIENTATION/CONSCIOUSNESS: Yes confused and Yes lethargic Resp: COMMON NORMALS: normal respiratory effort and No retractions Cardio: COMMON NORMALS: regular rhythm RHYTHM: regular rhythm GI: COMMON NORMALS: Soft to palpation and non-tender PALPATION: Yes Soft to palpation Neuro: SENSORIUM/ORIENTATION: Yes Orientation impaired and Yes lethargic Skin: COMMON NORMALS: no rashes or lesions noted and no wounds GENERAL SKIN EXAM: no rashes or lesions noted Urinary Catheter Management^: Nelson: Cath Placed During This Visit: yes, but has since been removed by the nurse Reason for Continuing Indwelling Catheter: Other Urinary Catheter Date of Insertion: 11/22/20 Urinary Catheter Time of Insertion: 20:03 Date Urinary Catheter Removed: 11/28/20 Time Urinary Catheter Discontinued: 15:00 Discharge Data Data Completed and Pending: Completed Studies During Hospitalization Category Date Time Status CT angio chest w abd pel w con Urge nt Cat Scan 11/22/20 18:[address] head wo con* 7 0450 Routine Cat Scan 11/23/20 10:01 Completed XR chest 1V [place] [id number] Urgent Exams 11/22/20 16:49 Completed CV echo complete* [id number] Routine Ultrasound 11/23/20 02:41 Completed Pending at discharge Category Date Time Status Sputum Culture an d Gram Stain Stat Lab 11/29/20 16:58 Results Vitals: Last Vital Signs Temp 98.5 F 11/30/20 16:32 Pulse 74 11/30/20 16:32 Resp 18 11/30/20 16:32 BP 124/82 11/30/20 16:32 Pulse Ox 94 11/30/20 16:32 Discharge Plan Discharge Patient Disposition: Hospice - Home Condition: Stable Prescriptions: New morphine concentrate 100 mg/5 mL (20 mg/mL) solution 5 mg PO Q6H PRN (Reason: pain) Qty: 30 RF: 0 Lorazepam Intensol 2 mg/mL concentrate 0.5 mg PO Q8H PRN (Reason: agitation) Qty: 30 RF: 0 atropine 1 % drops 1 drp PO Q4H PRN (Reason: Terminal congestion) Qty: 5 RF: 0 Continued finasteride 5 mg tablet 5 mg PO DAILY Qty: 90 RF: 3 levothyroxine 25 mcg tablet 25 mcg PO DAILY RF: 0 Lumigan 0.01 % drops See Rx Instructions .ROUTE .COMPLEX RF: 0 Discontinued metformin 500 mg tablet 500 mg PO BID RF: 0 losartan-hydrochlorothiazide 100-25 mg tablet 1 tab PO DAILY RF: 0 alfuzosin 10 mg tablet extended release 24 hr 10 mg PO DAILY Qty: 90 RF: 3 timolol maleate 0.5 % drops See Rx Instructions .ROUTE .COMPLEX RF: 0 Discharge Orders: Discharge Order (Routine); Ordered 11/30/20 Ordered By: Buck Velazquez Referrals: [facility] [Outside] Philip Gordillo MD [Primary Care Provider] - 12/04/20 10:50 am Discharge Diet: Advance as tolerated Discharge Activity: Increase activity as tolerated Patient Instructions: Lorazepam (By mouth), Morphine, Slow Release (By mouth), Atropine (By mouth), Sepsis (DC) Discharge Attestations Time Spent in Discharge Care*: greater than 30 min Specific Discharge Activities: educating patient, discussing with pcp/other providers, discussing with case preparer and liner/social workers/dc planners, documenting/other paperwork and evaluating patient/reviewing data Status at Discharge: Cognitive status at discharge: moderately impaired cognition , Behavioral status at discharge: can be uncooperative , Functional status at discharge: other assisted ambulation Overall status at discharge: patient is not back to baseline Quality Metrics Clinical Quality Measures During this hospital stay, did patient experience: None Coding Level of Care Code Acute Button Reclaimer for Halle Hood Diagnoses Bilateral pulmonary embolism I26.99 Congestive heart failure I50.9 Heart failure chronicity: acute on chronic Heart failure type: unspecified
--- NOTE | 2020-11-30 20:46 | PM.DCS ---
Discharge Providers Date of Admission: 11/22/20 21:11 Date of Discharge: November 30, 2020 Attending Provider at Admission: Nithya Leon MD Attending Provider at Discharge: Buck Velazquez Primary Care Provider: Philip Gordillo MD Diagnoses at Discharge Discharge Diagnosis (1) Bilateral pulmonary embolism: Status: Acute (2) Congestive heart failure: Status: Acute Qualifiers: Heart failure chronicity: acute on chronic Heart failure type: unspecified Qualified Code(s): I50.9 - Heart failure, unspecified Reason for Visit Reason for Visit: CHF Hospital Course Hospital Course 80 year old male who presented to the hospital with chief complaint of confusion. Patient is not a good historian, I was not able to get in contact with the preferred phone number that was in the chart, I was told by the ER that home health service nurse checked on him today, she noticed hypoxia, at baseline patient uses 3 L of oxygen, not sure whether he was on oxygen at that time, EMS was called, he was saturating well above 90% on 3 to nasal cannula as per EMS. He was brought to the ER for further evaluation. diagnostics in the ER revealed bilateral PE, sepsis, possible right middle lobe pneumonia, CHF exacerbation, he was loaded with therapeutic dose of Lovenox, & vancomycin. EKG showing atrial fibrillation heart rate ranging between 100 104. Systolic blood pressure 160 mmHg, no hypotension noticed, no right heart strain, however BNP extremely high 29,000, lactic acidemia 3.8, potassium 5.[address] abdomen also revealed splenic infarct along bilateral PE, gallstones without acute cholecystitis, BPH. Patient is stating that he was not feeling well past for his in the hospital, he is not able to give me proper answer whether he was using oxygen at home or not, he stating that there is a friend at home who he lives with. At the time my evaluation he is not complaining of chest pain shortness of breath, he will get out of bed and go home however he told me his name, year, date of name of the hospital but did not know name of the president. He was given antipsychotic in the ER as well. Upon admission to the hospital patient did not show significant improvement in clinical condition. Remained confused with poor p.o. intake and multiple ongoing issues. At the time I some care the patient family had decided on hospice level of care. Patient was discharged to hospice on 11/30/2020. He was discharged with comfort meds. Physical Exam Const: GENERAL APPEARANCE: lethargic ORIENTATION/CONSCIOUSNESS: Yes confused and Yes lethargic Resp: COMMON NORMALS: normal respiratory effort and No retractions Cardio: COMMON NORMALS: regular rhythm RHYTHM: regular rhythm GI: COMMON NORMALS: Soft to palpation and non-tender PALPATION: Yes Soft to palpation Neuro: SENSORIUM/ORIENTATION: Yes Orientation impaired and Yes lethargic Skin: COMMON NORMALS: no rashes or lesions noted and no wounds GENERAL SKIN EXAM: no rashes or lesions noted Urinary Catheter Management^: Nelson: Cath Placed During This Visit: yes, but has since been removed by the nurse Reason for Continuing Indwelling Catheter: Other Urinary Catheter Date of Insertion: 11/22/20 Urinary Catheter Time of Insertion: 20:03 Date Urinary Catheter Removed: 11/28/20 Time Urinary Catheter Discontinued: 15:00 Discharge Data Data Completed and Pending: Completed Studies During Hospitalization Category Date Time Status CT angio chest w abd pel w con Urge nt Cat Scan 11/22/20 18:[address] head wo con* 7 0450 Routine Cat Scan 11/23/20 10:01 Completed XR chest 1V [place] ble [id number] Urgent Exams 11/22/20 16:49 Completed CV echo complete* [id number] Routine Ultrasound 11/23/20 02:41 Completed Pending at discharge Category Date Time Status Sputum Culture an d Gram Stain Stat Lab 11/29/20 16:58 Results Vitals: Last Vital Signs Temp 98.5 F 11/30/20 16:32 Pulse 74 11/30/20 16:32 Resp 18 11/30/20 16:32 BP 124/82 11/30/20 16:32 Pulse Ox 94 11/30/20 16:32 Discharge Plan Discharge Patient Disposition: Hospice - Home Condition: Stable Prescriptions: New morphine concentrate 100 mg/5 mL (20 mg/mL) solution 5 mg PO Q6H PRN (Reason: pain) Qty: 30 RF: 0 Lorazepam Intensol 2 mg/mL concentrate 0.5 mg PO Q8H PRN (Reason: agitation) Qty: 30 RF: 0 atropine 1 % drops 1 drp PO Q4H PRN (Reason: Terminal congestion) Qty: 5 RF: 0 Continued finasteride 5 mg tablet 5 mg PO DAILY Qty: 90 RF: 3 levothyroxine 25 mcg tablet 25 mcg PO DAILY RF: 0 Lumigan 0.01 % drops See Rx Instructions .ROUTE .COMPLEX RF: 0 Discontinued metformin 500 mg tablet 500 mg PO BID RF: 0 losartan-hydrochlorothiazide 100-25 mg tablet 1 tab PO DAILY RF: 0 alfuzosin 10 mg tablet extended release 24 hr 10 mg PO DAILY Qty: 90 RF: 3 timolol maleate 0.5 % drops See Rx Instructions .ROUTE .COMPLEX RF: 0 Discharge Orders: Discharge Order (Routine); Ordered 11/30/20 Ordered By: Buck Velazquez Referrals: [facility] [Outside] Philip Gordillo MD [Primary Care Provider] - 12/04/20 10:50 am Discharge Diet: Advance as tolerated Discharge Activity: Increase activity as tolerated Patient Instructions: Lorazepam (By mouth), Morphine, Slow Release (By mouth), Atropine (By mouth), Sepsis (DC) Discharge Attestations Time Spent in Discharge Care*: greater than 30 min Specific Discharge Activities: educating patient, educating and/or supporting family/caregiver, discussing with major case detective/social workers/dc planners, documenting/other paperwork and evaluating patient/reviewing data Status at Discharge: Cognitive status at discharge: moderately impaired cognition, Behavioral status at discharge: can be uncooperative, Functional status at discharge: other assisted ambulation Overall status at discharge: patient is not back to baseline Quality Metrics Clinical Quality Measures During this hospital stay, did patient experience: None Coding Level of Care Code Acute Assistant Professor Of Theater for Halle Hood Diagnoses Bilateral pulmonary embolism I26.99 Congestive heart failure I50.9 Heart failure chronicity: acute on chronic Heart failure type: unspecified
== END 2020-11-30 16:33 | disposition hospice, home (50) | DRG 871 ==
LOC: ER 11-23 01:27 → ER IP 11-23 02:20 → ICU 11-23 15:17 → CSU 11-24 18:19 → MEDSURG 11-26 15:49
PROVIDERS: Family Medicine; Internal Medicine; Admitting Provider Internal Medicine; Emergency Provider Internal Medicine; PCP Family Medicine; Visit Provider Hospitalist
DX: A41.9 Sepsis, unspecified organism (principal); I26.99 Other pulmonary embolism without acute cor pulmonale; J18.9 Pneumonia, unspecified organism; G93.41 Metabolic encephalopathy; I11.0 Hypertensive heart disease with heart failure; I50.9 Heart failure, unspecified; Z99.81 Dependence on supplemental oxygen; I48.91 Unspecified atrial fibrillation; D73.5 Infarction of spleen; K80.80 Other cholelithiasis without obstruction; N40.1 Benign prostatic hyperplasia with lower urinary tract symptoms; M19.90 Unspecified osteoarthritis, unspecified site; H40.9 Unspecified glaucoma; E78.00 Pure hypercholesterolemia, unspecified; Z96.641 Presence of right artificial hip joint; K72.90 Hepatic failure, unspecified without coma; D75.1 Secondary polycythemia; E03.9 Hypothyroidism, unspecified; F03.90 Unspecified dementia, unspecified severity, without behavioral disturbance, psychotic disturbance, mood disturbance, and anxiety
CPT/HCPCS: 12345; 36415; 36416; 51702; 70450; 71045; 71275; 74177; 80048; 80053; 81001; 82607; 82962; 83605; 83735; 83880; 84443; 84484; 85025; 85378; 86403; 86705; 86706; 86709; 86803; 87040; 87070; 87086; 87106; 87205; 87340; 87426; 87449; 87635; 87641; 87804; 92526; 92610; 93005; 93306; 96372; 97116; 97161; 97530; 99284; J1630; J1650; J1815; J1940; J2060; J2543; J3370; J3480; J3490; J7050; J7799; Q9967